=== PATIENT | female | born 1940 | race Caucasian/White ===

== ENCOUNTER → 2017-07-04 | Outpatient (CLI) | payer MEDICARE, OTHER ==
[~2017-07-04] MED LIST: ADVAIR DISKU AER 250; ALBU90OI INH; ALBU90OI6 INH; ASCO500; ASPI81CH PO; ASPI81EC; Advair Hfa 230-12 GM; CEFP200 PO; CELE200 PO; COLACE 100 MG; ERGO400 PO; FLUT1DIS5 INH; GABA300; GABA300 PO; HYDACE5; HYDACE5 PO; HYDR1TAB94 PO; Hair, Skin & N1 EACH PO; Hydrocodone-Ap1 EA23; LORA.5 PO; MELO7.5 PO; METH1TAB8 PO; MIRALAX17 GM; Mobic15 MG; Norco 7.5-3251 EACH PO; OMEP20ER; OMEP20ER PO; OMEP40CA12 PO; Omeprazole20 M1; PROM25 PO; Prilosec Otc20 MG; SERT100; SERT100 PO; TIZANIDINE HCL4 MG PO; TRIAMT/HCTZ TAB 75-; TRIAMTERENE-HCTZ PO; TRIHYD253B PO; TRIHYD5075; TRIHYD5075 PO; TRIM100; VITAMIN D; Vitamin B Comple1 EA PO
[2017-07-04 11:48] LABS: Bilirubin, Urine Neg (Neg); Blood, Urine 2+ (Neg); Glucose Qualitative, Urine Neg (Neg); Ketones, Urine Neg (Neg); Leukocyte Esterase, Urine 3+ (Neg); Nitrite, Urine Pos (Neg); Protein, Urine 1+ (Neg); Specific Gravity, Urine 1.005 (1.003-1.022); Urobilinogen, Urine NORM (Normal)
[2017-07-04 11:58] LABS: Appearance, Urine Clear (Clear); Color, Urine Yellow (P-Yellow)
[2017-07-04 11:59] LABS: White Blood Cells, Urine TNTC /hpf (0-5)
[2017-07-04 12:00] LABS: Bacteria Mod /hpf; Squamous Epithelial Cells Few /hpf (Few)
== END | disposition home or self-care (01) ==
LOC: OLS 10:12
PROVIDERS: Physician Assistant
DX: N39.0 Urinary tract infection, site not specified (principal)
CPT/HCPCS: 81001; 87077; 87086; 87186

== ENCOUNTER → 2017-09-13 | Outpatient (CLI) | payer MEDICARE, OTHER ==
[2017-09-15 13:10] LABS: Stool Occult Bld Immuno 1 Positive (NEGATIVE)
== END | disposition home or self-care (01) ==
LOC: LAB 20:00 → LAB SHORT 20:00 → LAB FUT 09-11 15:15
PROVIDERS: Internal Medicine
DX: D53.8 Other specified nutritional anemias (principal)
CPT/HCPCS: 82274

== ENCOUNTER → 2017-09-14 | Outpatient (CLI) | payer MEDICARE, OTHER ==
[2017-09-17 14:43] LABS: Stool Occult Bld Immuno 1 Positive (NEGATIVE)
== END ==
LOC: LAB 20:00 → LAB SHORT 20:00
PROVIDERS: Internal Medicine
DX: D53.8 Other specified nutritional anemias (principal)
CPT/HCPCS: 82274

== ENCOUNTER → 2018-02-26 | Outpatient (CLI) | payer MEDICARE, OTHER ==
[2018-02-27 14:32] LABS: Stool Occult Bld Immuno 1 Negative (NEGATIVE); Stool Occult Bld Immuno 2 Negative (NEGATIVE)
== END ==
LOC: LAB FUT 02-19 16:35 → EDSTATUS 02-19 16:35 → LAB SHORT 23:00 → LAB 23:00
PROVIDERS: Internal Medicine Gastroenterology
DX: Z01.812 Encounter for preprocedural laboratory examination (principal); Z01.818 Encounter for other preprocedural examination; D64.9 Anemia, unspecified
CPT/HCPCS: 82274

== ENCOUNTER → 2018-11-04 | Outpatient (CLI) | payer MEDICARE, OTHER ==
[2018-11-04 11:24] LABS: Source, Urine Clean Catch
[2018-11-04 12:26] LABS: Bilirubin, Urine Neg (Neg); Blood, Urine 1+ (Neg); Glucose Qualitative, Urine Neg (Neg); Ketones, Urine Neg (Neg); Leukocyte Esterase, Urine 3+ (Neg); Nitrite, Urine Pos (Neg); Protein, Urine Neg (Neg); Specific Gravity, Urine 1.005 (1.003-1.022); Urobilinogen, Urine NORM (Normal)
[2018-11-04 12:37] LABS: Appearance, Urine Hazy (Clear); Color, Urine Yellow (P-Yellow)
[2018-11-04 12:43] LABS: Bacteria Many /hpf; Red Blood Cells, Urine 0-2 /hpf (0-2); Renal Epithelial Rare /hpf (0-Rare); Squamous Epithelial Cells Not Seen /hpf (Few); White Blood Cells, Urine TNTC /hpf (0-5)
== END | disposition home or self-care (01) ==
LOC: LAB SHORT 11:13 → LAB 11:13
PROVIDERS: Urology
DX: R30.0 Dysuria (principal)
CPT/HCPCS: 81001

== ENCOUNTER 2019-01-21 13:17 | Emergency (ER) | payer MEDICARE, OTHER ==
[~2019-01-21] VITALS: Ht 167.6 cm; Wt 77.1 kg
[2019-01-21] MEDS ORDERED: Triamterene W/1 EACH PO (13:57)
== END 2019-01-21 15:28 | disposition home or self-care (01) ==
LOC: ER 13:17
DX: M54.5 Low back pain (principal); J44.9 Chronic obstructive pulmonary disease, unspecified; G89.29 Other chronic pain; Z88.6 Allergy status to analgesic agent; Z88.5 Allergy status to narcotic agent; Z88.8 Allergy status to other drugs, medicaments and biological substances; Z79.899 Other long term (current) drug therapy; Z79.82 Long term (current) use of aspirin; Z87.891 Personal history of nicotine dependence
CPT/HCPCS: 72100; 99283-25

== ENCOUNTER 2019-01-28 18:44 | Emergency (ER) | payer MEDICARE, OTHER ==
[~2019-01-28] VITALS: Ht 172.7 cm; Wt 79.4 kg
[~2019-01-28 18:44] MED LIST changes: +Triamterene W/1 EACH PO
[2019-01-28 20:48] LABS: BASOPHILS ABSOLUTE AUTO 0.04 K/mm3 (0.00-0.23); BASOPHILS PERCENT AUTO 1 % (0-2); EOSINOPHILS PERCENT AUTO 2 % (0-6); Hematocrit 36.5 % (33.0-51.0); Hemoglobin 11.9 g/dL (11.5-16.0); IMMATURE GRAN ABSOLUTE AUTO 0.02 K/mm3 (0.00-0.10); IMMATURE GRAN PERCENT AUTO 0 % (0-1); LYMPHOCYTES ABSOLUTE AUTO 0.56 K/mm3 (0.84-5.20); LYMPHOCYTES PERCENT AUTO 8 % (21-46); MONOCYTES ABSOLUTE AUTO 0.13 K/mm3 (0.16-1.47); MONOCYTES PERCENT AUTO 2 % (4-13); Mean Corpuscular HGB 30.7 pg (26.0-34.0); Mean Corpuscular HGB Conc 32.6 g/dL (31.5-36.5); Mean Corpuscular Volume 94 fL (80-100); Mean Platelet Volume 10.6 fL (9.1-12.4); NEUTROPHILS ABSOLUTE AUTO 5.93 K/mm3 (1.96-9.15); NEUTROPHILS PERCENT AUTO 87 % (41-73); Platelet Count 186 K/mm3 (150-400); RDW Coefficient Variation 14.1 % (11.7-14.2); RDW Standard Deviation 48.8 fL (35.1-46.3); Red Blood Cell Count 3.88 M/mm3 (3.80-5.20); White Blood Cell Count 6.78 K/mm3 (4.00-11.30)
[2019-01-28 21:02] LABS: Alanine Aminotransfer (ALT/SGP 22 U/L (12-78); Albumin, Blood 3.8 g/dL (3.4-5.0); Alk Phos 119 U/L (50-136); Anion Gap 9 mmol/L (6-16); Aspartate Aminotrans (AST/SGOT 15 U/L (12-37); Bilirubin, Total 0.7 mg/dL (0.1-1.0); Blood Urea Nitrogen 20 mg/dL (8-24); Bun/Creatinine Ratio 27.7 (12.0-20.0); CO2, Blood 26 mmol/L (21-32); Calcium, Blood 8.8 mg/dL (8.5-10.1); Chloride, Blood 105 mmol/L (98-108); Creatinine, Blood 0.72 mg/dL (0.40-1.00); Glomerular Filtration Rate >60 (60-); Glucose, Blood 146 mg/dL (70-99); Potassium, Blood 3.6 mmol/L (3.5-5.5); Sodium, Blood 140 mmol/L (136-145); Total Protein, Blood 7.8 g/dL (6.4-8.2); Troponin I <0.015 ng/mL (0.000-0.040)
[2019-01-28 21:12] LABS: Source, Urine Clean Catch
[2019-01-28 21:19] LABS: Bilirubin, Urine Neg (Neg); Blood, Urine 2+ (Neg); Glucose Qualitative, Urine Neg (Neg); Ketones, Urine Neg (Neg); Leukocyte Esterase, Urine 3+ (Neg); Nitrite, Urine Pos (Neg); Protein, Urine 3+ (Neg); Urobilinogen, Urine NORM (Normal)
[2019-01-28 21:30] LABS: Appearance, Urine Hazy (Clear); Bacteria Many /hpf; Color, Urine Yellow (P-Yellow); Red Blood Cells, Urine 0-2 /hpf (0-2); Squamous Epithelial Cells Few /hpf (Few); White Blood Cells, Urine TNTC /hpf (0-5)
[2019-01-28] MEDS ORDERED: CEFD300 PO (22:22)
== END 2019-01-28 23:48 | disposition home or self-care (01) ==
LOC: ER 18:44
PROVIDERS: Emergency Medicine
DX: N39.0 Urinary tract infection, site not specified (principal); Z87.891 Personal history of nicotine dependence; Z88.5 Allergy status to narcotic agent; Z88.8 Allergy status to other drugs, medicaments and biological substances; Z79.891 Long term (current) use of opiate analgesic; Z79.82 Long term (current) use of aspirin; Z79.899 Other long term (current) drug therapy
CPT/HCPCS: 36415; 71046; 80053; 81001; 84484; 85025; 87077; 87086; 87186; 93005; 93010; 96361; 96365; 99284-25; J0696; J7030

== ENCOUNTER → 2019-02-06 | Outpatient (CLI) | payer MEDICARE, OTHER ==
[~2019-02-06] MED LIST changes: +BISA10S PR; +CEFD300 PO; +Colace100 MG PO; +DELTASONE20 MG PO; +DOCU100 PO; +HYDHCL25 PO; +Mobic15 MG PO; +PROBIOTIC1 EAC4; +SENN187 PO; +TIZA4 PO
[2019-02-06 11:31] LABS: Source, Urine Clean Catch
[2019-02-06 12:32] LABS: Bilirubin, Urine Neg (Neg); Blood, Urine Neg (Neg); Glucose Qualitative, Urine Neg (Neg); Ketones, Urine Neg (Neg); Leukocyte Esterase, Urine 1+ (Neg); Nitrite, Urine Neg (Neg); Protein, Urine Neg (Neg); Urobilinogen, Urine NORM (Normal)
[2019-02-06 13:05] LABS: Appearance, Urine Clear (Clear); Color, Urine Yellow (P-Yellow)
[2019-02-06 13:06] LABS: Bacteria Few /hpf; Red Blood Cells, Urine 0-2 /hpf (0-2); Squamous Epithelial Cells Mod /hpf (Few)
== END | disposition home or self-care (01) ==
LOC: LAB SHORT 11:28 → LAB 11:28 → LAB FUT 02-06 15:00
PROVIDERS: Internal Medicine
DX: R30.0 Dysuria (principal)
CPT/HCPCS: 81001; 87086

== ENCOUNTER 2019-02-13 04:00 | Inpatient (IN) | payer MEDICARE, OTHER ==
[~2019-02-13] VITALS: Ht 167.6 cm; Wt 77.1 kg
[~2019-02-13 04:00] MED LIST changes: -BISA10S PR; -Colace100 MG PO; -DELTASONE20 MG PO; -DOCU100 PO; -HYDHCL25 PO; -Mobic15 MG PO; -PROBIOTIC1 EAC4; -SENN187 PO; -TIZA4 PO
[2019-02-13 04:37] LABS: BASOPHILS PERCENT AUTO 1 % (0-2); EOSINOPHILS ABSOLUTE AUTO 0.19 K/mm3 (0.00-0.68); EOSINOPHILS PERCENT AUTO 2 % (0-6); Hematocrit 37.8 % (33.0-51.0); Hemoglobin 12.6 g/dL (11.5-16.0); IMMATURE GRAN ABSOLUTE AUTO 0.04 K/mm3 (0.00-0.10); IMMATURE GRAN PERCENT AUTO 0 % (0-1); LYMPHOCYTES ABSOLUTE AUTO 1.77 K/mm3 (0.84-5.20); LYMPHOCYTES PERCENT AUTO 16 % (21-46); MONOCYTES ABSOLUTE AUTO 0.49 K/mm3 (0.16-1.47); MONOCYTES PERCENT AUTO 4 % (4-13); Mean Corpuscular HGB Conc 33.3 g/dL (31.5-36.5); Mean Corpuscular Volume 93 fL (80-100); Mean Platelet Volume 9.2 fL (9.1-12.4); NEUTROPHILS ABSOLUTE AUTO 8.74 K/mm3 (1.96-9.15); NEUTROPHILS PERCENT AUTO 77 % (41-73); Platelet Count 394 K/mm3 (150-400); RDW Coefficient Variation 13.8 % (11.7-14.2); RDW Standard Deviation 46.8 fL (35.1-46.3); Red Blood Cell Count 4.06 M/mm3 (3.80-5.20); White Blood Cell Count 11.33 K/mm3 (4.00-11.30)
[2019-02-13] MEDS ORDERED: Mobic15 MG PO (04:45)
[2019-02-13] MEDS ORDERED: TIZA4 PO (04:46)
[2019-02-13] MEDS ORDERED: PROBIOTIC1 EAC4 (04:47)
[2019-02-13] MEDS ORDERED: Colace100 MG PO (04:47)
[2019-02-13] MEDS ORDERED: HYDHCL25 PO (04:49)
[2019-02-13 04:54] LABS: Alanine Aminotransfer (ALT/SGP 21 U/L (12-78); Albumin, Blood 4.1 g/dL (3.4-5.0); Alk Phos 121 U/L (50-136); Anion Gap 10 mmol/L (6-16); Aspartate Aminotrans (AST/SGOT 11 U/L (12-37); Bilirubin, Total 0.4 mg/dL (0.1-1.0); Blood Urea Nitrogen 22 mg/dL (8-24); Bun/Creatinine Ratio 29.9 (12.0-20.0); CO2, Blood 25 mmol/L (21-32); Calcium, Blood 9.7 mg/dL (8.5-10.1); Chloride, Blood 106 mmol/L (98-108); Creatinine, Blood 0.74 mg/dL (0.40-1.00); Globulin, Blood 4.2 g/dL (2.2-4.0); Glomerular Filtration Rate >60 (60-); Glucose, Blood 165 mg/dL (70-99); Potassium, Blood 3.7 mmol/L (3.5-5.5); Sodium, Blood 141 mmol/L (136-145); Total Protein, Blood 8.3 g/dL (6.4-8.2)
--- NOTE | 2019-02-13 11:10 | NUR ---
MD NOTIFIED MD NOTIFIED OF UNSUCCESFUL NG ATTEMPT AFTER MULTIPLE ATTEMPTS BY THIS NURSE, COSMO NOE AND COSMO RAMOS. PT NAUSEATED WITHOUT EMESIS. WILL AWAIT SURGICAL CONSULT AND CONTINUE TO MONITOR.
--- NOTE | 2019-02-13 17:37 | NUR ---
ADMIT TO SURGICAL FLOOR REPORT RECEIVED FROM ED, RN AT APPROX. 0710. PT ARRIVED AT 0730 VIA GURNEY WITH N/V AND DROWSINESS.
--- NOTE | 2019-02-13 17:40 | NUR ---
SHIFT SUMMARY PT IS A & O AND ABLE TO ASSIST WITH REPOSITIONING/AMBULATION. NAUSEATED WITH DRY HEAVING AND MIN. EMESIS T/O SHIFT. ALSO REPORTED ABD PAIN INTERMITTENTLY T/O SHIFT THAT WAS DECREASED WITH ANTIEMETIC IV MED AND FREQUENT REPOSITIONING/ DANGLING. SHE BECAME DROWSY BUT RESPONISIVE TO VERBAL STIMULATION AFTER IV PAIN MEDICATION. PT AMBULATED WITH 1 ASSIST TO BATHROOM AND CHAIR WITH FWW. DR. ANDERSON ATTEMPTED TWICE TO INSERT NG AT APPROX. 1400. 94% SPO2 ON 1L O2 WITH RR OF 16. REPORTS LAST BM WAS YESTERDAY AND IS VOIDING. NO ACUTE SAFETY CONCERNS AT THIS TIME.
--- NOTE | 2019-02-13 19:08 | NUR ---
PT CONTINUES TO HAVE UNRELIEVED NAUSEA AND PAIN.SPOKE WITH DR. ANDERSON AT 1900 CONCERNING THIS. NO NEW ORDERS, WILL MAKE NOC RN AWARE AND CTM
[2019-02-13 22:50] LABS: BASOPHILS ABSOLUTE AUTO 0.07 K/mm3 (0.00-0.23); BASOPHILS PERCENT AUTO 1 % (0-2); EOSINOPHILS ABSOLUTE AUTO 0.04 K/mm3 (0.00-0.68); EOSINOPHILS PERCENT AUTO 1 % (0-6); Hematocrit 34.7 % (33.0-51.0); Hemoglobin 11.1 g/dL (11.5-16.0); IMMATURE GRAN ABSOLUTE AUTO 0.04 K/mm3 (0.00-0.10); IMMATURE GRAN PERCENT AUTO 1 % (0-1); LYMPHOCYTES ABSOLUTE AUTO 0.96 K/mm3 (0.84-5.20); LYMPHOCYTES PERCENT AUTO 11 % (21-46); MONOCYTES ABSOLUTE AUTO 0.44 K/mm3 (0.16-1.47); MONOCYTES PERCENT AUTO 5 % (4-13); Mean Platelet Volume 9.3 fL (9.1-12.4); NEUTROPHILS ABSOLUTE AUTO 6.84 K/mm3 (1.96-9.15); NEUTROPHILS PERCENT AUTO 82 % (41-73); Platelet Count 302 K/mm3 (150-400); RDW Standard Deviation 49.7 fL (35.1-46.3); Red Blood Cell Count 3.58 M/mm3 (3.80-5.20); White Blood Cell Count 8.39 K/mm3 (4.00-11.30)
[2019-02-13 23:12] LABS: Mean Corpuscular Volume 97 fL (80-100)
--- NOTE | 2019-02-14 06:44 | NUR ---
SHIFT SUMMARY HAS IMPROVED SINCE START OF SHIFT. PAIN NOW MANAGED. NO CURRENT C/O N/V. AMBULATES TO BATHROOM WITH STANDBY ASSIST AND FWW. NO FLATUS OR BM NOTED THIS SHIFT. NO FURTHER CHANGES AT THIS TIME. SAFETY MEASURES IN PLACE. WILL GIVE HAND OFF TO ONCOMNG SHIFT USING SBAR.
[2019-02-14 08:50] LABS: BASOPHILS ABSOLUTE AUTO 0.03 K/mm3 (0.00-0.23); BASOPHILS PERCENT AUTO 1 % (0-2); EOSINOPHILS PERCENT AUTO 0 % (0-6); Hematocrit 35.3 % (33.0-51.0); Hemoglobin 11.3 g/dL (11.5-16.0); IMMATURE GRAN ABSOLUTE AUTO 0.04 K/mm3 (0.00-0.10); IMMATURE GRAN PERCENT AUTO 1 % (0-1); LYMPHOCYTES ABSOLUTE AUTO 0.53 K/mm3 (0.84-5.20); LYMPHOCYTES PERCENT AUTO 9 % (21-46); MONOCYTES ABSOLUTE AUTO 0.05 K/mm3 (0.16-1.47); MONOCYTES PERCENT AUTO 1 % (4-13); Mean Corpuscular HGB 30.1 pg (26.0-34.0); Mean Platelet Volume 9.5 fL (9.1-12.4); NEUTROPHILS ABSOLUTE AUTO 5.31 K/mm3 (1.96-9.15); NEUTROPHILS PERCENT AUTO 89 % (41-73); Platelet Count 312 K/mm3 (150-400); RDW Coefficient Variation 14.2 % (11.7-14.2); RDW Standard Deviation 48.8 fL (35.1-46.3); Red Blood Cell Count 3.75 M/mm3 (3.80-5.20); White Blood Cell Count 5.96 K/mm3 (4.00-11.30)
[2019-02-14 08:51] LABS: Mean Corpuscular Volume 94 fL (80-100)
--- NOTE | 2019-02-14 09:19 | NUR ---
DOCTOR AT BEDSIDE DR. ANDERSON IN TO SEE PATIENT AT APPROX 0830. HOSPITALIST ALSO INTO SEE PATIENT THIS MORNING AT 0920.
[2019-02-14 09:20] LABS: Magnesium, Blood 2.1 mg/dL (1.6-2.4)
[2019-02-14 09:25] LABS: Alanine Aminotransfer (ALT/SGP 22 U/L (12-78); Albumin, Blood 3.4 g/dL (3.4-5.0); Albumin/Globulin Ratio 0.9 (0.8-1.8); Alk Phos 93 U/L (50-136); Anion Gap 6 mmol/L (6-16); Aspartate Aminotrans (AST/SGOT 16 U/L (12-37); Bilirubin, Total 0.4 mg/dL (0.1-1.0); Blood Urea Nitrogen 14 mg/dL (8-24); Bun/Creatinine Ratio 23.7 (12.0-20.0); CO2, Blood 28 mmol/L (21-32); Calcium, Blood 8.5 mg/dL (8.5-10.1); Chloride, Blood 110 mmol/L (98-108); Creatinine, Blood 0.59 mg/dL (0.40-1.00); Globulin, Blood 3.9 g/dL (2.2-4.0); Glomerular Filtration Rate >60 (60-); Glucose, Blood 145 mg/dL (70-99); Potassium, Blood 3.6 mmol/L (3.5-5.5); Sodium, Blood 144 mmol/L (136-145); Total Protein, Blood 7.3 g/dL (6.4-8.2)
--- NOTE | 2019-02-14 17:12 | NUR ---
SHIFT SUMMARY PT A&O WITH VSS. SHE REPORTS PASSING FLATUS T/O SHIFT. PAIN WELL CONTROLLED WITH ONLY ONE DOSE OF PAIN MEDICATION DURING SHIFT. IN CHAIR FREQUENTLY AND AMBULATED WITHOUT DIFFICULTY TO BATHROOM W/FFW AND 1 ASSIST. SPO2 @ 93% ON 1L NS. TOLERATING ICE CHIPS. USES CALL LIGHT APPROPRIATELY.
[2019-02-15 04:07] LABS: BASOPHILS ABSOLUTE AUTO 0.01 K/mm3 (0.00-0.23); BASOPHILS PERCENT AUTO 0 % (0-2); EOSINOPHILS PERCENT AUTO 0 % (0-6); Hematocrit 34.4 % (33.0-51.0); Hemoglobin 10.9 g/dL (11.5-16.0); IMMATURE GRAN ABSOLUTE AUTO 0.04 K/mm3 (0.00-0.10); IMMATURE GRAN PERCENT AUTO 1 % (0-1); LYMPHOCYTES ABSOLUTE AUTO 0.61 K/mm3 (0.84-5.20); LYMPHOCYTES PERCENT AUTO 8 % (21-46); MONOCYTES ABSOLUTE AUTO 0.15 K/mm3 (0.16-1.47); MONOCYTES PERCENT AUTO 2 % (4-13); Mean Corpuscular HGB 30.9 pg (26.0-34.0); Mean Corpuscular HGB Conc 31.7 g/dL (31.5-36.5); Mean Platelet Volume 9.5 fL (9.1-12.4); NEUTROPHILS ABSOLUTE AUTO 6.76 K/mm3 (1.96-9.15); NEUTROPHILS PERCENT AUTO 89 % (41-73); Platelet Count 285 K/mm3 (150-400); RDW Coefficient Variation 14.4 % (11.7-14.2); Red Blood Cell Count 3.53 M/mm3 (3.80-5.20); White Blood Cell Count 7.57 K/mm3 (4.00-11.30)
[2019-02-15 04:08] LABS: Mean Corpuscular Volume 98 fL (80-100)
[2019-02-15 04:31] LABS: Alanine Aminotransfer (ALT/SGP 16 U/L (12-78); Albumin, Blood 3.5 g/dL (3.4-5.0); Alk Phos 83 U/L (50-136); Anion Gap 7 mmol/L (6-16); Aspartate Aminotrans (AST/SGOT 16 U/L (12-37); Bilirubin, Total 0.5 mg/dL (0.1-1.0); Blood Urea Nitrogen 17 mg/dL (8-24); Bun/Creatinine Ratio 30.7 (12.0-20.0); CO2, Blood 26 mmol/L (21-32); Calcium, Blood 8.3 mg/dL (8.5-10.1); Chloride, Blood 109 mmol/L (98-108); Creatinine, Blood 0.55 mg/dL (0.40-1.00); Globulin, Blood 3.6 g/dL (2.2-4.0); Glomerular Filtration Rate >60 (60-); Glucose, Blood 132 mg/dL (70-99); Magnesium, Blood 2.1 mg/dL (1.6-2.4); Phosphorus, Blood 2.9 mg/dL (2.5-4.9); Potassium, Blood 3.2 mmol/L (3.5-5.5); Sodium, Blood 142 mmol/L (136-145); Total Protein, Blood 7.1 g/dL (6.4-8.2)
--- NOTE | 2019-02-15 06:33 | NUR ---
PT HAS BEEN STABLE THIS SHIFT. PT DENIES PAIN AND NAUSEA. CONT TO PAS FLATUS, NO BM. PT VOIDING WELL. ALESSIA ICE CHIPS. CONT IV FLUIDS. NEW IV THIS SHIFT. REMAINS ON 2L O2. CONT BIOX ON. BED ALARM ON FOR SAFETY. PT HAS USED CALL LIGHT APPROPRAITELY THIS SHIFT.
[2019-02-15 13:46] LABS: Source, Urine Clean Catch
[2019-02-15 13:57] LABS: Bilirubin, Urine Neg (Neg); Blood, Urine 2+ (Neg); Glucose Qualitative, Urine Neg (Neg); Ketones, Urine Neg (Neg); Leukocyte Esterase, Urine 3+ (Neg); Nitrite, Urine Neg (Neg); Protein, Urine 1+ (Neg); Urobilinogen, Urine NORM (Normal)
--- NOTE | 2019-02-15 13:57 | NUR ---
DR ANDERSON RECENTLY HERE, UPDATED ON PT'S STATUS. PT REPORTS HAVING BM BUT FEELING BLOATED AFTER EATING.
[2019-02-15 14:06] LABS: Appearance, Urine Hazy (Clear); Color, Urine Yellow (P-Yellow)
[2019-02-15 14:07] LABS: White Blood Cells, Urine 25-50 /hpf (0-5)
[2019-02-15 14:09] LABS: Bacteria Many /hpf; Mucus Mod (0-Heavy); Red Blood Cells, Urine 0-2 /hpf (0-2); Squamous Epithelial Cells Many /hpf (Few)
--- NOTE | 2019-02-15 17:35 | NUR ---
SHIFT SUMMARY PT EATING AND DRINKING. PT REPORTS FEELING BLOATED AFTER EATING BUT THAT SHE IS VOIDING, PASSING GAS, AND HAVING SMALL BM'S. PT BEEN UP TO CHAIR, AMBULATED IN HALLWAY WITH ASSIST. PT S.L. PT USING Ubi APPR. PT ENJOYS HAVING ICE CHIPS. MARLENA NAIK TO SEE PT TODAY.
--- NOTE | 2019-02-16 05:52 | NUR ---
PT HAS BEEN STABLE THIS SHIFT. HYPERTENSIVE AT TIMES. AFEBRILE. URINE MICRO PENDING. PT HAS CLOUDY URINE AND REPORTS DYSURIA. VOIDING WELL. MIN ASSIST OOB TO BATHROOM. PT ALSO REPORTS SORE THROAT. WHEEZING T/O SHIFT, BREATHING TREATMENT X1. SATS STABLE ON RA. CONT BIOX IN PLACE. PT CONT TO PASS FLATUS OCCASIONALLY. NO BM THIS SHIFT. BLOATING AND PAIN AFTER FULL LIQUIDS. PT TOOK ONLY ICE THIS SHIFT. NO N/V. IV REMAINS S.L. BED ALARM ON FOR AFETY, PT CALLED APPROPRIATELY NEEDED.
--- NOTE | 2019-02-16 16:17 | NUR ---
SHIFT SUMMARY PT INDEPENDANT IN ROOM, WAKLED DOWN HALLWAY TODAY INDEPENDANTLY. PT HAS REPORTED NO PAIN TODAY. TOLERATING WATER AND HAS EATEN VERY SMALL AMOUNT OF FOOD TODAY, BUT REPORTS DISCOMFORT AFTER EATING. DR HAS BEEN IN TO SEE PT TODAY.
--- NOTE | 2019-02-17 05:28 | NUR ---
PT HAS BEEN STABLE THIS SHIFT. REMAINS ON RA. CONT BIOX ON. PT SLEPT MOST OF THE NIGHT. NO COMPLAINTS OF PAIN OR NAUSEA. INDEP TO BATHROOM. VOIDING WELL. + UTI. DRINKING FLUIDS WELL BUT NOT TOLERATING REGULAR DIET IT CAUSES BLOATING AND DISCOMFORT. PT HAVING FLATUS. NO BM THIS SHIFT. BOWEL CARE GIVEN SCHEDULED. PT USES CALL LIGHT APPROPRIATELY NEEDED.
[2019-02-17] MEDS ORDERED: BISA10S PR (10:53)
[2019-02-17] MEDS ORDERED: DOCU100 PO (10:54)
[2019-02-17] MEDS ORDERED: SENN187 PO (10:55)
[2019-02-17] MEDS ORDERED: DELTASONE20 MG PO (10:55)
[2019-02-17] MEDS ORDERED: CEFD300 PO (10:56)
--- NOTE | 2019-02-17 12:20 | NUR ---
DISCHARGED REVIEWED DC PAPERWORK W/PT; VERBALIZED UNDERSTANDING. DC'D IV, CATHETER INTACT. PT LEFT UNIT IN WC W/POSSESSIONS AND DC PAPERWORK IN HAND ACCOMPANIED BY FAMILY MEMBER.
== END 2019-02-17 12:10 | disposition home or self-care (01) | DRG 389 ==
LOC: ER 04:00 → SURS 06:09
PROVIDERS: Emergency Medicine; Family Medicine; Nurse Practitioner Acute Care; ADMIT Internal Medicine
DX: K56.609 Unspecified intestinal obstruction, unspecified as to partial versus complete obstruction (principal); N39.0 Urinary tract infection, site not specified; E86.0 Dehydration; J44.9 Chronic obstructive pulmonary disease, unspecified; K43.9 Ventral hernia without obstruction or gangrene; K21.9 Gastro-esophageal reflux disease without esophagitis; E78.5 Hyperlipidemia, unspecified; Z87.891 Personal history of nicotine dependence
CPT/HCPCS: 36415; 74176; 80053; 81001; 83605; 83690; 83735; 84100; 85025; 87077; 87086; 87186; 94640; 94760; 94762; 96374; 96375; 96376; 99285-25; J0456; J0696; J1170; J1650; J2405; J2550; J2930; J3010; J7030; J7050; J7512

== ENCOUNTER → 2019-03-09 | Outpatient (CLI) | payer MEDICARE, OTHER ==
[~2019-03-09] MED LIST changes: +BISA10S PR; +Colace100 MG PO; +DELTASONE20 MG PO; +DOCU100 PO; +HYDHCL25 PO; +Mobic15 MG PO; +PROBIOTIC1 EAC4; +SENN187 PO; +TIZA4 PO
== END | disposition home or self-care (01) ==
LOC: LAB SHORT 11:29 → LAB 11:29 → LAB FUT 02-21 12:55
DX: K30 Functional dyspepsia (principal)
CPT/HCPCS: 87338

== ENCOUNTER → 2019-04-14 | Outpatient (CLI) | payer MEDICARE, OTHER ==
[2019-04-14 13:09] LABS: Source, Urine Clean Catch
[2019-04-14 13:58] LABS: Bilirubin, Urine Neg (Neg); Blood, Urine Neg (Neg); Glucose Qualitative, Urine Neg (Neg); Ketones, Urine Neg (Neg); Leukocyte Esterase, Urine Neg (Neg); Nitrite, Urine Neg (Neg); Protein, Urine Neg (Neg); Specific Gravity, Urine 1.005 (1.003-1.022); Urobilinogen, Urine NORM (Normal)
[2019-04-14 14:37] LABS: Appearance, Urine Clear (Clear); Color, Urine Yellow (P-Yellow)
== END | disposition home or self-care (01) ==
LOC: LAB 13:09 → LAB SHORT 13:09
PROVIDERS: Urology
DX: N39.0 Urinary tract infection, site not specified (principal)
CPT/HCPCS: 81003; 87086

== ENCOUNTER → 2019-07-28 | Outpatient (CLI) | payer MEDICARE, OTHER ==
[2019-07-28 16:00] LABS: Source, Urine Clean Catch
[2019-07-28 16:38] LABS: Bilirubin, Urine Neg (Neg); Blood, Urine Neg (Neg); Glucose Qualitative, Urine Neg (Neg); Ketones, Urine Neg (Neg); Leukocyte Esterase, Urine Neg (Neg); Nitrite, Urine Neg (Neg); Protein, Urine Neg (Neg); Urobilinogen, Urine NORM (Normal)
[2019-07-28 16:40] LABS: Appearance, Urine Clear (Clear); Color, Urine Yellow (P-Yellow)
== END | disposition home or self-care (01) ==
LOC: LAB SHORT 15:45 → OLS 15:45 → LAB FUT 07-27 15:20 → EDSTATUS 07-27 15:20
PROVIDERS: Internal Medicine
DX: N39.0 Urinary tract infection, site not specified (principal)
CPT/HCPCS: 81003

== ENCOUNTER → 2019-10-03 | Outpatient (CLI) | payer MEDICARE, OTHER ==
[2019-10-03 15:27] LABS: Bilirubin, Urine Neg (Neg); Blood, Urine Neg (Neg); Glucose Qualitative, Urine Neg (Neg); Ketones, Urine Neg (Neg); Leukocyte Esterase, Urine 2+ (Neg); Nitrite, Urine Neg (Neg); Protein, Urine Neg (Neg); Specific Gravity, Urine 1.005 (1.003-1.022); Urobilinogen, Urine NORM (Normal)
[2019-10-03 15:33] LABS: Appearance, Urine Clear (Clear); Color, Urine Yellow (P-Yellow)
[2019-10-03 15:35] LABS: Bacteria Many /hpf; Red Blood Cells, Urine 0-2 /hpf (0-2); Squamous Epithelial Cells Few /hpf (Few)
== END | disposition home or self-care (01) ==
LOC: LAB SHORT 13:56 → LAB 13:56
PROVIDERS: Physician Assistant
DX: N39.0 Urinary tract infection, site not specified (principal)
CPT/HCPCS: 81001; 87077; 87086; 87186

== ENCOUNTER → 2020-04-20 | Outpatient (CLI) | payer MEDICARE, OTHER ==
[2020-04-20 14:26] LABS: Source, Urine Clean Catch
[2020-04-20 18:40] LABS: Appearance, Urine Hazy (Clear); Bilirubin, Urine Neg (Neg); Blood, Urine 1+ (Neg); Color, Urine Yellow (P-Yellow); Glucose Qualitative, Urine Neg (Neg); Ketones, Urine Neg (Neg); Leukocyte Esterase, Urine 2+ (Neg); Nitrite, Urine Pos (Neg); Protein, Urine Neg (Neg); Specific Gravity, Urine 1.015 (1.003-1.022); Urobilinogen, Urine NORM (Normal)
[2020-04-20 18:58] LABS: Mucus Mod (0-Heavy)
[2020-04-20 18:59] LABS: Amorphous Mod (0-Heavy); Bacteria Mod /hpf; Renal Epithelial Rare /hpf (0-Rare); Squamous Epithelial Cells Few /hpf (Few); Transitional Epithelial Cells Few /hpf (0-Rare); White Blood Cells, Urine 25-50 /hpf (0-5)
== END | disposition home or self-care (01) ==
LOC: LAB 14:25 → LAB SHORT 14:25
PROVIDERS: Physician Assistant
DX: N39.0 Urinary tract infection, site not specified (principal)
CPT/HCPCS: 81001; 87077; 87086; 87186

== ENCOUNTER → 2020-06-08 | Outpatient (CLI) | payer MEDICARE, OTHER ==
[~2020-06-08] MED LIST changes: +Acetaminophen325 M1 PO; +CARAFATE1 GM PO; +DULCOLAX400 MG/5 M PO; +DULO60 PO; +Dyazide 37.5/251 EA PO; -ERGO400 PO; +FAMO20 PO; +FLUTICASONE-SA1 EA11 INH; +Fleet Enema132 ML PR; +Monodox100 MG PO; +Norco 5-325 Ta1 EACH PO; +PROBIOTIC1 EA13 PO; -PROBIOTIC1 EAC4; -Triamterene W/1 EACH PO; +Vancomycin1 GM/2501 IV; +Vitamin D2000 UNIT PO
== END | disposition home or self-care (01) ==
LOC: PLD 12:25 → LAB SHORT 12:25
DX: F42.4 Excoriation (skin-picking) disorder (principal)
CPT/HCPCS: 88305; 88312

== ENCOUNTER → 2020-06-11 | Outpatient (CLI) | payer MEDICARE ==
[2020-06-11 15:18] LABS: Source, Urine Clean Catch
[2020-06-11 17:44] LABS: Appearance, Urine Cloudy (Clear); Bilirubin, Urine Neg (Neg); Blood, Urine Neg (Neg); Color, Urine Yellow (P-Yellow); Glucose Qualitative, Urine Neg (Neg); Ketones, Urine Neg (Neg); Leukocyte Esterase, Urine 1+ (Neg); Nitrite, Urine Pos (Neg); Protein, Urine Neg (Neg); Specific Gravity, Urine 1.015 (1.003-1.022); Urobilinogen, Urine NORM (Normal)
[2020-06-11 18:07] LABS: Amorphous Light (0-Heavy); Bacteria Many /hpf; Red Blood Cells, Urine 0-2 /hpf (0-2); Squamous Epithelial Cells Mod /hpf (Few); White Blood Cells, Urine 25-50 /hpf (0-5)
== END ==
LOC: LAB 15:16 → LAB SHORT 15:16
PROVIDERS: Internal Medicine
DX: N39.0 Urinary tract infection, site not specified (principal)
CPT/HCPCS: 81001; 87077; 87086; 87186

== ENCOUNTER 2020-08-30 06:00 | Inpatient (IN) | payer MEDICARE ==
[~2020-08-30] VITALS: Ht 167.6 cm; Wt 77.5 kg
[~2020-08-30 06:00] MED LIST changes: -Acetaminophen325 M1 PO; -DOCU100 PO; -DULCOLAX400 MG/5 M PO; -DULO60 PO; -Dyazide 37.5/251 EA PO; -FAMO20 PO; -FLUTICASONE-SA1 EA11 INH; -Fleet Enema132 ML PR; -Monodox100 MG PO; -Norco 5-325 Ta1 EACH PO; -PROBIOTIC1 EA13 PO; -Vancomycin1 GM/2501 IV; -Vitamin D2000 UNIT PO
--- NOTE | 2020-08-30 07:53 | NUR ---
PT INTO [facility] VIA W/C, ABLE TO TRANSFER TO [facility] WITH [facility] ASSISTANCE. History, Chart, Medications and Allergies reviewed before start of procedure.Patient confirms NPO status and agrees with scheduled surgery. Patient reports completing Chlorhexadine shower X2 prior to admission to hospital.Surgical site prepped with 2% Chlorhexidine cloth wipe. CLARIFIED MEDICATIONS AND ALLERGIES WITH DR. COELHO PRIOR TO ADMINISTRATION. DUONEB GIVEN PER ANETHESIA. TEETH, GLASSES, HEARING AIDS TO PACU. RING TAPED AND RELEASE FORM SIGNED, PT REPORTS WILL NOT COME OFF.
--- NOTE | 2020-08-30 11:35 | NUR ---
pt arrived to unit on own bed, drowsy but answers questions appropriately, c/o back/r leg pin, asks to sit up, pt educated on anterior hip precautions, elevated bed as much as possible within precautions; arrives from PACU with sheet and towel roll between legs to keep pt from rolling to side in position. pt provided with room/call light education; post op vs commenced and stable. pt provided with PO fluids/snack, medicated per aug. aquacel R hip c/d/i, no shadowing, peripheral pulses strong, toes on operative limb cool, wiggles on command, cap refil <3 sec. PAS/TEDS in place.
--- NOTE | 2020-08-30 12:19 | NUR ---
C/O L THIGH/LOW BACK PAIN, APPLIED HEATING PAD TO L THIGH. POST OP VSS AND CONTINUING, PT RESTING WITH EYES CLOSED, AWAKENS EASILY TO VERBAL STIMULI. THIS RN NOTIFIED PT'S OF ROOM AND STATUS VIA TELEPHONE
--- NOTE | 2020-08-30 15:12 | NUR ---
PT IN ROOM WITH PATIENT AND SPOUSE
[2020-08-31 04:34] LABS: BASOPHILS ABSOLUTE AUTO 0.02 K/mm3 (0.00-0.23); BASOPHILS PERCENT AUTO 0 % (0-2); EOSINOPHILS ABSOLUTE AUTO 0.01 K/mm3 (0.00-0.68); EOSINOPHILS PERCENT AUTO 0 % (0-6); Hematocrit 29.1 % (33.0-51.0); Hemoglobin 9.2 g/dL (11.5-16.0); IMMATURE GRAN ABSOLUTE AUTO 0.03 K/mm3 (0.00-0.10); IMMATURE GRAN PERCENT AUTO 0 % (0-1); LYMPHOCYTES ABSOLUTE AUTO 1.03 K/mm3 (0.84-5.20); LYMPHOCYTES PERCENT AUTO 11 % (21-46); MONOCYTES ABSOLUTE AUTO 0.69 K/mm3 (0.16-1.47); MONOCYTES PERCENT AUTO 8 % (4-13); Mean Corpuscular HGB 31.4 pg (26.0-34.0); Mean Corpuscular HGB Conc 31.6 g/dL (31.5-36.5); Mean Corpuscular Volume 99 fL (80-100); Mean Platelet Volume 9.3 fL (9.1-12.4); NEUTROPHILS ABSOLUTE AUTO 7.45 K/mm3 (1.96-9.15); NEUTROPHILS PERCENT AUTO 81 % (41-73); Platelet Count 248 K/mm3 (150-400); RDW Coefficient Variation 13.4 % (11.7-14.2); RDW Standard Deviation 48.9 fL (35.1-46.3); Red Blood Cell Count 2.93 M/mm3 (3.80-5.20); White Blood Cell Count 9.23 K/mm3 (4.00-11.30)
[2020-08-31 04:59] LABS: Anion Gap 5 mmol/L (6-16); Blood Urea Nitrogen 17 mg/dL (8-24); Bun/Creatinine Ratio 25.1 (12.0-20.0); CO2, Blood 29 mmol/L (21-32); Calcium, Blood 8.4 mg/dL (8.5-10.1); Chloride, Blood 104 mmol/L (98-108); Creatinine, Blood 0.68 mg/dL (0.40-1.00); Glomerular Filtration Rate >60 (60-); Glucose, Blood 129 mg/dL (70-99); Magnesium, Blood 2.1 mg/dL (1.6-2.4); Potassium, Blood 3.8 mmol/L (3.5-5.5); Sodium, Blood 138 mmol/L (136-145)
--- NOTE | 2020-08-31 05:22 | NUR ---
SHIFT SUMMARY LYING IN SEMI FOWLERS WITH EYES CLOSED. HAS RESTED OFF AND ON THROUGHOUT SHIFT. NO SIGNIFICANT CHANGES NOTED. RIGHT HIP AQUACEL AND POLAR DAYANA REMAIN C/D/I AND IN PLACE. AMBULATION WITH FWW AND GAIT BELT TOLERATED WELL. SL PIV AFTER PT ABLE TO TOLERATE FLUIDS WITH EASE. DENIES N/V, OR FURTHER NEEDS AT THIS TIME. SAFETY MEASURES IN PLACE. WILL CONTINUE TO MONITOR AND GIVE HAND OFF TO ONCOMING SHIFT USING SBAR.
--- NOTE | 2020-08-31 18:21 | NUR ---
SHIFT SUMMARY INITIALLY PT WAS DROWSY, STRUGGLED FOLLOWING DIRECTIONS, & IMPULSIVE. HAS PROGRESSED SLOWLY T/O SHIFT & WAS EVEN ABLE TO AMBULATE IN HALLWAY W/ THERAPY. UP TO CHAIR FOR ALL MEALS. PAIN WELL MANAGED W/ OCC "CRAMPING" PAIN.
--- NOTE | 2020-09-01 05:45 | NUR ---
SHIFT ASSESSMENT LYING IN SEMI FOWLERS WITH EYES CLOSED. AAO X4, LYNNE, FAC, HAS BEEN COOPERATIVE AND PLEASANT WITH CARE. ONLY CALLED OUT ONCE WHEN SHE DECIDED THAT SHE NEEDED HELP REPOSITIONING. SHE STATED THAT SHE THOUGHT SHE WAS AT HOME AND WAS CALLING FOR HER . NO SIGNIFICANT CHANGES NOTED. PAIN MANAGED WITH PRN AND SCHEDULED MEDS. SL PIV IS PATENT. SCD'S, RAYSA, POLAR PAC, AND AQUACELL IN PLACE. DENIES FURTHER NEEDS AT THIS TIME. SAFETY MEASURES IN PLACE. WILL CONTINUE TO MONITOR AND GIVE HAND OFF TO ONCOMING SHIFT USING SBAR.
--- NOTE | 2020-09-01 06:55 | NUR ---
RECVD REPORT FROM PREVIOUS RN COLEMAN, PT SITTING UP IN CHAIR, A/O X 4, PLEASANT/COOPERATIVE, DENIES PAIN, CALL LIGHT WITHIN REACH
--- NOTE | 2020-09-01 17:38 | NUR ---
summary: vss, no acute changes, pt confused when wakening, reorients well, has remained a/o x 4 t/o shift. pt up to chair for meals, worked with PT, has been visited by her . R hip aquacel dressing remains c/d/i, cap refill operative limb <3 seconds. lungs clear, diminished in bases. pt has required reminders to uncross legs, has demonstrated impulsive movements.
--- NOTE | 2020-09-02 03:34 | NUR ---
SHIFT SUMMARY NO ACUTE CHANGES OVERNIGHT. PT SLEPT GOOD T/O THE SHIFT REPORTS PAIN 5-02/11. PAIN MANAGED WITH SCHEDULED TORADOL, NORCO Q4, FLEXERIL AND GABAPENTIN. IT SEEMED TO HELPED HER, PT COMFORTABLE IN BED SLEEPING. INTERMITTENTLY CROSS LEGS AND IS NOT COMPLIANT WITH HIP PRECAUTIONS. PROVIDE EDUCATION. PT DENIES NUMBNESS AND TINGLING SENSATION. PT TOLERATING PO INTAKE, DENIES N/V. URINARY CATH INTACT/GRAVITY. VOIDING ADEQUATELY. PASSING FLATUS. CALL LIGHT WITHIN REACH.
--- NOTE | 2020-09-02 19:42 | NUR ---
SHIFT SUMMARY PT A&OX4, VSS, POD3 R MARTIN, AQUACEL CHANGED TODAY, AMBULATES WITH FWW & GB TO BRP, UP TO CHAIR T/O SHIFT. PAIN MANAGED WITH 5 MG NORCO AND TORADOL. ALESSIA PO, DENIES N&V. VOIDING WELL, BMS+ TODAY. PLAN FOR SNF DC TOMORROW. REPORT PROVIDED TO LISA WILBURN.
--- NOTE | 2020-09-03 04:02 | NUR ---
SHIFT SUMMARY POD4 R MARTIN, A/O X4, VSS, TOLERATING PO, VOIDING VIA CHRONIC SUPRAPUBIC CATHETER, BM THIS SHIFT, AMBULATING W/ ASSISTANCE/FWW/GB, PAIN CONTROLLED PER EMAR, NO ACUTE EVENTS THIS SHIFT, PLAN TO DC IN THE MORNING. CALL LIGHT IN REACH, WILL CONTINUE TO MONITOR AND REPORT TO ONCOMING DAY RN.
[2020-09-03 13:28] LABS: Influenza A, PCR NEGATIVE (NEGATIVE); Influenza B, PCR NEGATIVE (NEGATIVE); Resp Syncytial Virus, PCR NEGATIVE (NEGATIVE); SARS-Cov-2 (COVID-19) PCR, MMC NEGATIVE (NEGATIVE)
--- NOTE | 2020-09-03 15:02 | NUR ---
DISCHARGE SUMMARY PT A&OX4, VSS, LEFT WITH TRANSPORT TO [facility], WITH ALL PERSONAL POSSESSIONS INCLUDING PURSE, POLAR DAYANA, AND CLOTHING; PACKET WITH SCRIPT WAS PROVIDED TO CAMPAIGN MANAGEMENT SPECIALIST. REPORT CALLED TO IGNACIA AT .
== END 2020-09-03 14:45 | DRG 470 ==
LOC: SURS 06:00 → ORSCMMR 06:00 → ORD 07:30 → ORSCMMR 07:30 → SURS 11:29 → ORSCMMR 09-01 20:27 → SURS 09-01 20:29
PROVIDERS: ADMIT Orthopaedic Surgery
PROC: 0QP604Z Removal of Internal Fixation Device from Right Upper Femur, Open Approach (ICD-10-PCS; 2020-08-30)
PROC: 3E02340 Introduction of Influenza Vaccine into Muscle, Percutaneous Approach (ICD-10-PCS; 2020-08-30)
PROC: 0SRR03Z Replacement of Right Hip Joint, Femoral Surface with Ceramic Synthetic Substitute, Open Approach (ICD-10-PCS; principal; 2020-08-30 07:30)
DX: M16.11 Unilateral primary osteoarthritis, right hip (principal); Z79.899 Other long term (current) drug therapy; K21.9 Gastro-esophageal reflux disease without esophagitis; F32.9 Major depressive disorder, single episode, unspecified; F41.9 Anxiety disorder, unspecified; E78.5 Hyperlipidemia, unspecified; I10 Essential (primary) hypertension; J44.9 Chronic obstructive pulmonary disease, unspecified; Z88.8 Allergy status to other drugs, medicaments and biological substances; Z90.49 Acquired absence of other specified parts of digestive tract; Z98.890 Other specified postprocedural states; Z90.710 Acquired absence of both cervix and uterus; Z96.642 Presence of left artificial hip joint; Z98.49 Cataract extraction status, unspecified eye; Z23 Encounter for immunization
CPT/HCPCS: 0241U; 36415; 72170; 80048; 83735; 85025; 94640; 94760; 97110; 97110-CO; 97110-CQ; 97116; 97116-CQ; 97162; 97166; 97530; 97530-CO; 97530-CQ; 97535; 97535-CO; A9270; A9270-GY; C1776; J0171; J0690; J0735; J1100; J1170; J1885; J2370; J2405; J2704; J2795; J3010; J7120

== ENCOUNTER 2020-09-11 17:31 | Inpatient (IN) | payer MEDICARE ==
[~2020-09-11] VITALS: Ht 167.6 cm; Wt 76.7 kg
[2020-09-11 18:16] LABS: BASOPHILS ABSOLUTE AUTO 0.05 K/mm3 (0.00-0.23); BASOPHILS PERCENT AUTO 1 % (0-2); EOSINOPHILS PERCENT AUTO 2 % (0-6); Hematocrit 29.1 % (33.0-51.0); Hemoglobin 9.4 g/dL (11.5-16.0); IMMATURE GRAN ABSOLUTE AUTO 0.05 K/mm3 (0.00-0.10); IMMATURE GRAN PERCENT AUTO 1 % (0-1); LYMPHOCYTES PERCENT AUTO 15 % (21-46); MONOCYTES ABSOLUTE AUTO 0.59 K/mm3 (0.16-1.47); MONOCYTES PERCENT AUTO 6 % (4-13); Mean Corpuscular HGB 31.5 pg (26.0-34.0); Mean Corpuscular HGB Conc 32.3 g/dL (31.5-36.5); Mean Corpuscular Volume 98 fL (80-100); Mean Platelet Volume 9.2 fL (9.1-12.4); NEUTROPHILS ABSOLUTE AUTO 7.89 K/mm3 (1.96-9.15); NEUTROPHILS PERCENT AUTO 77 % (41-73); Platelet Count 407 K/mm3 (150-400); RDW Standard Deviation 49.4 fL (35.1-46.3); Red Blood Cell Count 2.98 M/mm3 (3.80-5.20); White Blood Cell Count 10.28 K/mm3 (4.00-11.30)
[2020-09-11 18:33] LABS: Alanine Aminotransfer (ALT/SGP 21 U/L (12-78); Albumin, Blood 3.3 g/dL (3.4-5.0); Albumin/Globulin Ratio 0.8 (0.8-1.8); Alk Phos 106 U/L (50-136); Anion Gap 6 mmol/L (6-16); Aspartate Aminotrans (AST/SGOT 18 U/L (12-37); Bilirubin, Total 0.4 mg/dL (0.1-1.0); Blood Urea Nitrogen 12 mg/dL (8-24); CO2, Blood 28 mmol/L (21-32); Calcium, Blood 8.8 mg/dL (8.5-10.1); Chloride, Blood 100 mmol/L (98-108); Creatinine, Blood 0.67 mg/dL (0.40-1.00); Glomerular Filtration Rate >60 (60-); Glucose, Blood 118 mg/dL (70-99); Potassium, Blood 3.4 mmol/L (3.5-5.5); Sodium, Blood 134 mmol/L (136-145); Total Protein, Blood 7.3 g/dL (6.4-8.2)
[2020-09-11] MEDS ORDERED: FLUTICASONE-SA1 EA11 INH (19:33)
[2020-09-11] MEDS ORDERED: DULO60 PO (19:34)
[2020-09-11] MEDS ORDERED: Monodox100 MG PO (19:35)
[2020-09-11] MEDS ORDERED: Dyazide 37.5/251 EA PO (19:35)
[2020-09-11] MEDS ORDERED: Vitamin D2000 UNIT PO (19:59)
[2020-09-11] MEDS ORDERED: PROBIOTIC1 EA13 PO (19:59)
[2020-09-11] MEDS ORDERED: FAMO20 PO (20:00)
[2020-09-11] MEDS ORDERED: DOCU100 PO (20:01)
[2020-09-11] MEDS ORDERED: Norco 5-325 Ta1 EACH PO (20:02)
[2020-09-11] MEDS ORDERED: GABA300 PO (20:03)
[2020-09-11] MEDS ORDERED: ASPI81CH PO (20:03)
[2020-09-11] MEDS ORDERED: SENN187 PO (20:05)
[2020-09-11] MEDS ORDERED: Acetaminophen325 M1 PO (20:05)
[2020-09-11 22:30] LABS: Influenza A, PCR NEGATIVE (NEGATIVE); Influenza B, PCR NEGATIVE (NEGATIVE); Resp Syncytial Virus, PCR NEGATIVE (NEGATIVE); SARS-Cov-2 (COVID-19) PCR, MMC NEGATIVE (NEGATIVE)
[2020-09-12 02:56] LABS: Source, Urine Catheter
[2020-09-12 02:58] LABS: Bilirubin, Urine Neg (Neg); Blood, Urine 4+ (Neg); Glucose Qualitative, Urine Neg (Neg); Ketones, Urine Neg (Neg); Leukocyte Esterase, Urine 3+ (Neg); Nitrite, Urine Neg (Neg); Protein, Urine 2+ (Neg); Specific Gravity, Urine 1.015 (1.003-1.022); Urobilinogen, Urine NORM (Normal)
[2020-09-12 03:07] LABS: Appearance, Urine Cloudy (Clear); Color, Urine Yellow (P-Yellow)
[2020-09-12 03:10] LABS: Amorphous Light (0-Heavy); Bacteria Mod /hpf; Squamous Epithelial Cells Many /hpf (Few); White Blood Cells, Urine 25-50 /hpf (0-5)
[2020-09-12 04:06] LABS: BASOPHILS ABSOLUTE AUTO 0.04 K/mm3 (0.00-0.23); BASOPHILS PERCENT AUTO 0 % (0-2); EOSINOPHILS ABSOLUTE AUTO 0.02 K/mm3 (0.00-0.68); EOSINOPHILS PERCENT AUTO 0 % (0-6); Hematocrit 30.8 % (33.0-51.0); Hemoglobin 9.7 g/dL (11.5-16.0); IMMATURE GRAN PERCENT AUTO 1 % (0-1); LYMPHOCYTES ABSOLUTE AUTO 0.66 K/mm3 (0.84-5.20); LYMPHOCYTES PERCENT AUTO 5 % (21-46); MONOCYTES ABSOLUTE AUTO 0.66 K/mm3 (0.16-1.47); MONOCYTES PERCENT AUTO 5 % (4-13); Mean Corpuscular HGB 31.1 pg (26.0-34.0); Mean Corpuscular HGB Conc 31.5 g/dL (31.5-36.5); Mean Corpuscular Volume 99 fL (80-100); Mean Platelet Volume 9.1 fL (9.1-12.4); NEUTROPHILS ABSOLUTE AUTO 12.72 K/mm3 (1.96-9.15); NEUTROPHILS PERCENT AUTO 90 % (41-73); Platelet Count 360 K/mm3 (150-400); RDW Coefficient Variation 14.2 % (11.7-14.2); RDW Standard Deviation 50.9 fL (35.1-46.3); Red Blood Cell Count 3.12 M/mm3 (3.80-5.20)
[2020-09-12] MEDS ORDERED: Fleet Enema132 ML PR (04:17)
[2020-09-12] MEDS ORDERED: BISA10S PR (04:17)
[2020-09-12] MEDS ORDERED: DULCOLAX400 MG/5 M PO (04:18)
[2020-09-12 04:36] LABS: Anion Gap 6 mmol/L (6-16); Blood Urea Nitrogen 12 mg/dL (8-24); Bun/Creatinine Ratio 14.3 (12.0-20.0); CO2, Blood 27 mmol/L (21-32); Chloride, Blood 104 mmol/L (98-108); Creatinine, Blood 0.84 mg/dL (0.40-1.00); Glomerular Filtration Rate >60 (60-); Glucose, Blood 145 mg/dL (70-99); Potassium, Blood 3.5 mmol/L (3.5-5.5); Sodium, Blood 137 mmol/L (136-145)
--- NOTE | 2020-09-12 04:53 | NUR ---
ADMIT & SHIFT SUMMARY PT TO UNIT FROM ED. PROVIDER STATES BEING WORRIED ABOUT NECROTIZIN FASCITIS. PT LETHARGIC UPON ARRIVAL TO UNIT AND ONLY RESPONDING TO PAIN. PRESENTS TO BE IN SEVERE PAIN TO R HIP POST HIP SURGERY ON 08/30. PT OJN 2LNC, LUNGS CLEAR T/O. PT IN SINUS RHYTHM W/ PAC'S. PT PRESENTED WITH CHRONIC SUPRAPUBIC CATHETER, THIS WAS CHANGED OUT BY STAFF, 16FR INSERTED WITH URINE RETURN AND NO COMPLICATIONS, UA SENT FROM NEWLY PLACED CATHETER. FOR MUCH OF SHIFT PT HAS BEEN VERY LETHARGIC BUT STILL AT TIMES SHOWS SIGNS OF SEVERE PAIN. TOWARDS ENF OF SHIFT, PT PRESENTS W/ LESSENING GRIMACING, MOANING, ETC. PT HAS BECAME LESS LETHARGIC WELL BUT STILL DIFFICULT TO HOLD CONVERSATION WITH RN. COVID NEGATIVE IN ER. ADMISSION PACKET COMPLETED EXCEPT HEALTH HX DUE TO INABILITY TO VERIFY INFO W/ PT DUE TO MENTATION. OTHERWISE, PT ASLEEP FOR MOST OF SHIFT. BED ALARM IN PLACE. BED IN LOW POSITION. WILL CONTINUE TO MONITOR UNTIL SHIFT CHANGE.
[2020-09-12 11:35] LABS: BODY FLUID RBC 0.172 M/mm3 (0-0); RBC Count, Synovial Fluid 172000 /mm3 (0-0)
--- NOTE | 2020-09-12 11:58 | NUR ---
Pt back form surgery very painfull with low back sapsms. supportive time with patient assited with positioning. Review of prn meds with nursing. Will follow forsymptom managment and to complete advance directive and polst.
[2020-09-12 12:00] LABS: WBC Count, Synovial Fluid 71300 /mm3 (0-180)
[2020-09-12 12:01] LABS: Appearance, Synovial Fluid Turbid (Clear); Color, Synovial Fluid Red (None-P Yel)
[2020-09-12 12:10] LABS: Lymphs, Synovial Fluid 2 % (0-15); Monocytes/Macrophages, Synovia 2 % (0-65); Neutrophils, Synovial Fluid 96 % (0-24)
--- NOTE | 2020-09-12 12:58 | NUR ---
POST-OP/TRANSFER NOTE OBTAINED REPORT FROM SUNGLASS CLIP ATTACHER AND CODING SUPPORT SPECIALIST. PATIENT HAD I&D OF RIGHT HIP WOUND. PATIENT DROWSY IN ROOM. EXPERIENCING SPASMS OF SEVERE PAIN IN HER LOWER BACK. MEDICATED FOR PAIN PER EMAR WITH DILAUDID AND TORADOL. NAUSEATED AND MEDICATED WITH ZOFRAN. SPASMS CONTINUED, GAVE PO NEURONTIN AND CYMBALTA. ABLE TO TOLERATE SIPS OF CLEARS AND JELLO. IV FLUIDS RUNNING. REPOSITIONED PATIENT AND PLACED ICE TO RIGHT HIP. VSS. PATIENT WAS ABLE TO SPEAK BRIEFLY WITH HER DAUGHTER ON THE PHONE.
--- NOTE | 2020-09-12 17:04 | NUR ---
SHIFT SUMMARY PATIENT UNDERWENT I&D OF RIGHT HIP. PAINFUL ON RETURN FROM PACU. EXPERIENCING SHOOTING PAIN IN BACK AND RIGHT LEG THAT RESEMBLED MUSCLE SPASMS. MEDICATED FOR PAIN WITH DILAUDID, TORADOL, NEURONTIN, AND CYMBALTA. TOLERATING CLEARS AND VOIDING IN SUPRAPUBIC CATHETER. IV FLUIDS RUNNING. DRESSING TO RIGHT HIP C/D/I.
--- NOTE | 2020-09-13 04:07 | NUR ---
SHIFT SUMMARY: WILLIS AROUSES EASILY AND RESPONDS APPROPRIATELY. SHE HAS DEMONSTRATED SOME MILD CONFUSION WHEN AROUSING , BUT REORIENTS HERSELF. BP IMPROVING WITH ADDITIONAL FLUID ADMINISTRATION. SUPRAPUBIC CATHETER PATENT. ABDUCTOR PILLOW IN PLACE, DRESSING TO RIGHT HIP C/D&I. SHE REPORTS "GRABBING" PAIN IN HER RIGHT THIGH WHICH SOUNDS LIKE MUSCLE SPASMS. TOLERATING PO INTAKE WELL ALTHOUGH INTAKE WAS MINIMAL THIS SHIFT. SHE IS ABLE TO MOVE HERSELF IN BED WITH MINIMAL ASSISTANCE. SHE IS LYING IN BED WITH THE CALL LIGHT IN REACH. WILL REPORT TO DAY SHIFT RN.
[2020-09-13 04:53] LABS: Hematocrit 20.7 % (33.0-51.0); Hemoglobin 6.5 g/dL (11.5-16.0); Mean Corpuscular HGB 31.3 pg (26.0-34.0); Mean Corpuscular HGB Conc 31.4 g/dL (31.5-36.5); Mean Corpuscular Volume 100 fL (80-100); Mean Platelet Volume 9.1 fL (9.1-12.4); Platelet Count 248 K/mm3 (150-400); RDW Coefficient Variation 14.3 % (11.7-14.2); RDW Standard Deviation 51.1 fL (35.1-46.3); Red Blood Cell Count 2.08 M/mm3 (3.80-5.20); White Blood Cell Count 13.25 K/mm3 (4.00-11.30)
[2020-09-13 05:09] LABS: Magnesium, Blood 1.8 mg/dL (1.6-2.4)
[2020-09-13 05:10] LABS: Anion Gap 6 mmol/L (6-16); BAND PERCENT MAN 18 % (0-8); BASOPHILS PERCENT MAN 0 % (0-2); Blood Urea Nitrogen 15 mg/dL (8-24); Bun/Creatinine Ratio 22.3 (12.0-20.0); CO2, Blood 26 mmol/L (21-32); Calcium, Blood 7.4 mg/dL (8.5-10.1); Chloride, Blood 106 mmol/L (98-108); Creatinine, Blood 0.67 mg/dL (0.40-1.00); EOSINOPHILS PERCENT MAN 0 % (0-6); Glomerular Filtration Rate >60 (60-); Glucose, Blood 141 mg/dL (70-99); LYMPHOCYTES ABSOLUTE MAN 0.26 K/mm3 (0.84-5.20); LYMPHOCYTES PERCENT MAN 2 % (21-46); MONOCYTES ABSOLUTE MAN 0.79 K/mm3 (0.16-1.47); MONOCYTES PERCENT MAN 6 % (4-13); NEUTROPHILS ABSOLUTE MAN 12.19 K/mm3 (1.96-9.15); Potassium, Blood 3.6 mmol/L (3.5-5.5); SEG NEUTROPHILS PERCENT MAN 74 % (41-73); Sodium, Blood 138 mmol/L (136-145); TOTAL CELLS COUNTED 100
--- NOTE | 2020-09-13 05:52 | NUR ---
[facility] 6.5 THIS MORNING. ON-CALL PHYSICIAN NOTIFIED, ORDER OBTAINED FOR 1 UNIT PACKED RED BLOOD CELLS. DISCUSSED WITH PT WHO STATES SHE IS WILLING TO RECEIVE BLOOD/BLOOD PRODUCTS.
--- NOTE | 2020-09-13 12:12 | NUR ---
PT TO OR VIA HOSPITAL BED. BLOOD TRANSFUSION TO COMPLETED BY DAY SURGERY/OR.
--- NOTE | 2020-09-13 12:32 | NUR ---
EXPIRATORY WHEEZES AUSCULATED TO UPPER POSTERIOR LUNGS BILAT. PATIENT DENIES SOB AND STATES SHE HAS A HX COPD. WILL REPORT TO DR COELHO AND TO THE ANESTHESIOLOGIST.
--- NOTE | 2020-09-13 13:05 | NUR ---
DR COELHO AND DR TRACY, ANESTHESIOLIGST, NOTIFIED OF WHEEZING. PATIENT GIVEN DUO NEB PER DR TRACY ORDER.
--- NOTE | 2020-09-13 14:37 | NUR ---
09/13/20 1437 Stephy Burt PT ON SCHEDULED ANTIBIOTIC AND ENTERED OR WITH TRUONG CATH
--- NOTE | 2020-09-13 17:20 | NUR ---
POST OP ARRIVED VIA HOSPITAL BED INTO ROOM. C/O PAIN BUT SMILES & JOKES WHEN SEES HER DAUGHTER. ALERT & ORIENTED BUT UNABLE TO COPE W/ PAIN. GRABS AT R HIP. R HIP RED W/ WOUND VAC WNL. PPP. VSS.
--- NOTE | 2020-09-13 23:50 | NUR ---
ASSUMED CARE AT THIS TIME. PT SLEEPING BUT DOES WAKE TO TOUCH. STATES PAIN IS MINIMAL. VSS, WOUND VAC TO RIGHT HIP IN PLACE AND DELIVERING THERAPY. BRUISING NOTED TO RIGHT THIGH/GROIN. SP CATH IN PLACE AND DRAINING LIGHT YELLOW URINE. PT WAS REPOSITIONED TO OTHER SIDE AND TOLERATED WELL. SCHEDULE TORADOL GIVEN AT THIS TIME. PT WAS GIVEN SIP OF WATER PER REQUEST NO OTHER NEEDS AT THIS TIME. CALL LIGHT IN REACH.
[2020-09-14 05:11] LABS: Hematocrit 27.9 % (33.0-51.0); Hemoglobin 8.9 g/dL (11.5-16.0); Mean Corpuscular HGB 29.6 pg (26.0-34.0); Mean Corpuscular HGB Conc 31.9 g/dL (31.5-36.5); Mean Corpuscular Volume 93 fL (80-100); Mean Platelet Volume 9.5 fL (9.1-12.4); Platelet Count 263 K/mm3 (150-400); RDW Coefficient Variation 19.4 % (11.7-14.2); Red Blood Cell Count 3.01 M/mm3 (3.80-5.20); White Blood Cell Count 10.51 K/mm3 (4.00-11.30)
[2020-09-14 05:34] LABS: Anion Gap 6 mmol/L (6-16); Blood Urea Nitrogen 14 mg/dL (8-24); Bun/Creatinine Ratio 21.5 (12.0-20.0); CO2, Blood 25 mmol/L (21-32); Calcium, Blood 7.9 mg/dL (8.5-10.1); Chloride, Blood 108 mmol/L (98-108); Creatinine, Blood 0.65 mg/dL (0.40-1.00); Glomerular Filtration Rate >60 (60-); Glucose, Blood 171 mg/dL (70-99); Potassium, Blood 4.4 mmol/L (3.5-5.5); Sodium, Blood 139 mmol/L (136-145); Vancomycin, Trough 9.8 ug/mL (5.0-10.0)
--- NOTE | 2020-09-14 05:34 | NUR ---
PT HAS DONE QUITE WELL SINCE ASSUMING CARE. PAIN IS MINIMAL. WV STILL IN PLACE H/H BETTER THIS AM. PT HAS BEEN TOLERATING PO, IV SL PER ORDERS. TITRATED OXYGEN TO 1L NC. TRUONG DRAINING SUFFICIENT AMTS. CALL LIGHT IN REACH, BED ALARM ON FOR SAFETY.
--- NOTE | 2020-09-14 18:35 | NUR ---
SHIFT SUMMARY PT WAS INITIALLY IN A LOT OF PAIN BUT HAS SINCE BEEN COMFORTABLE. SAT UP IN CHAIR TWICE, AMBULATED IN HALLWAY ONCE. WOUND VAC WNL.
--- NOTE | 2020-09-15 03:43 | NUR ---
SHIFT SUMMARY AOX3, FORGETFUL AT TIMES. VSS. POD2 S/P FOR 2ND I&D WITH WOUND VAC PLACEMENT. PT REPORTS PAIN 5-10/10. MOSTLY WELL CONTROLLED T/O SHIFT WITH TORADOL, DILAUDID AND NORCO. PT DENIES N/T. R HIP W/ WOUND VAC WNL. ABX ADMINISTERED ON IV POWERGLIDE ON JABIER. TOLERATING REG DIET DENIES NAUSEA AND VOMITING. PT HAS A MILD WET COUGH. SHE REPORTS PASSING FLATUS. NO ACUTE CHANGES OVERNIGHT. PT SLEPT GOOD T/O SHIFT. CALL LIGHT WITHIN REACH, REMAIN ON ISO DUET O MRSA. WILL CONTINUE TO MONITOR PATIENT AND PROVIDE REPORT TO ONCOMING AM NURSE.
[2020-09-15 05:39] LABS: Hematocrit 28.1 % (33.0-51.0); Mean Corpuscular HGB 29.9 pg (26.0-34.0); Mean Corpuscular Volume 93 fL (80-100); Mean Platelet Volume 9.4 fL (9.1-12.4); Platelet Count 308 K/mm3 (150-400); RDW Coefficient Variation 18.7 % (11.7-14.2); RDW Standard Deviation 65.1 fL (35.1-46.3); Red Blood Cell Count 3.01 M/mm3 (3.80-5.20); White Blood Cell Count 8.51 K/mm3 (4.00-11.30)
[2020-09-15 05:55] LABS: Anion Gap 4 mmol/L (6-16); Blood Urea Nitrogen 13 mg/dL (8-24); Bun/Creatinine Ratio 16.1 (12.0-20.0); CO2, Blood 27 mmol/L (21-32); Calcium, Blood 7.8 mg/dL (8.5-10.1); Chloride, Blood 110 mmol/L (98-108); Creatinine, Blood 0.81 mg/dL (0.40-1.00); Glomerular Filtration Rate >60 (60-); Glucose, Blood 98 mg/dL (70-99); Potassium, Blood 4.2 mmol/L (3.5-5.5); Sodium, Blood 141 mmol/L (136-145)
--- NOTE | 2020-09-15 08:30 | NUR ---
pt eating breakfast sitting on edge of the bed reports being fuzzy stated unsure why had to tell two of her friends that she would call them back reviewed labs with pt and vs think it poss could be the neurontin will hold this am
--- NOTE | 2020-09-15 10:44 | NUR ---
dr valverde by earlier discussed with him how she was feeling "fuzzy"
--- NOTE | 2020-09-15 12:35 | NUR ---
umannabellea valley by to see pt
--- NOTE | 2020-09-15 14:40 | NUR ---
dr lana nance by to see pt new wound vac cannister placed
--- NOTE | 2020-09-15 16:41 | NUR ---
Pt seen at lunch time. More vibrant and talkative today. She express pain is better and less spasms. She is hopful she wont need a repeat "cleaning" of her hip. Appetite good and she was enjoying her food. Will see who will be managing her chronic pain after she leaved the SNF. She is high risk for readmissions due to her chronic back pain and spasms.
--- NOTE | 2020-09-16 00:50 | NUR ---
MIDNIGHT TORADOL DOSE STAGGERED UNTIL 0100 PRIOR DOSE HAD TO BE GIVEN AT 2000 INSTEAD OF 1800 DUE TO IV ACCESS DIFFICULTIES.
--- NOTE | 2020-09-16 02:44 | NUR ---
Ms Blanco has had quite a rough night tonight. Her confusion and anxiety seemed to get worse into the shift. just after midnight, Caroline began yelling out and crying. She called her and asked him to come pick her up. This took place about 20 minutes after she had received her midnight Toradol dose, She was crying when she explained that she was having nightmares about someone trying to kill her. The chargemaster specialist and myself both sat with the patient and got her to calm down and relax after being given 0.25mcg Fentanyl for moderate to severe R, Hip pain. will continue close monitoring for safety
[2020-09-16 05:19] LABS: Hematocrit 29.2 % (33.0-51.0); Hemoglobin 9.3 g/dL (11.5-16.0); Mean Corpuscular HGB 29.8 pg (26.0-34.0); Mean Corpuscular HGB Conc 31.8 g/dL (31.5-36.5); Mean Corpuscular Volume 94 fL (80-100); Mean Platelet Volume 9.6 fL (9.1-12.4); Platelet Count 344 K/mm3 (150-400); RDW Coefficient Variation 17.9 % (11.7-14.2); RDW Standard Deviation 61.8 fL (35.1-46.3); Red Blood Cell Count 3.12 M/mm3 (3.80-5.20); White Blood Cell Count 6.26 K/mm3 (4.00-11.30)
--- NOTE | 2020-09-16 05:26 | NUR ---
MOLDER MACHINE SUMMARY Caroline continued to call out frequently all night. Pain medication changed from dilaudid to fentanyl which did appear to help a little bit. She is very aware that she is having surgery this morning and each time she tries to get out of bed, she asks if it is time. Scant drainage from wound vac. Seal remains intact. Patient reaches for it quite often when staff present in room but is easily redirected. Medicated Q6 per order with toradol and once with fentanyl. Perhaps she could use something to sleep to help her relax at night or HS.
[2020-09-16 05:41] LABS: Anion Gap 3 mmol/L (6-16); Blood Urea Nitrogen 12 mg/dL (8-24); CO2, Blood 29 mmol/L (21-32); Chloride, Blood 111 mmol/L (98-108); Creatinine, Blood 0.67 mg/dL (0.40-1.00); Glomerular Filtration Rate >60 (60-); Glucose, Blood 105 mg/dL (70-99); Sodium, Blood 143 mmol/L (136-145)
[2020-09-16 05:56] LABS: Vancomycin, Trough 20.1 ug/mL (5.0-10.0)
--- NOTE | 2020-09-16 10:22 | NUR ---
Pt resting in bed and reporting 10/10 pain in her hip. Pt reports plan for another debrisment today. Pt appears anxious as well. Continued therapeutic listening. Dr Barney into to see Pt. Discussed case with Dr Barney. Placed order for neurotin 100mg PO q 8 hours and Bacloefen 10mg PO BID per V/O from Dr Barney. Spoke with Bedside COSMO Dutton and discussed case. Palliative Care will remain available.
--- NOTE | 2020-09-16 13:25 | NUR ---
PT TO OR AT APROX 1325 ON OWN BED.
--- NOTE | 2020-09-16 13:51 | NUR ---
PT. WAS BROUGHT TO D/S FO HER PROCEDURE. History, Chart, Medications and Allergies reviewed before start of procedure.Lungs clear T/O to Auscultation. Patient confirms NPO status and agrees with scheduled surgery. Pre-Op teaching done. Pt verbalizes understanding.
--- NOTE | 2020-09-16 14:56 | NUR ---
09/16/20 1456 KULDIPMANI FLORES PT RECEIVED SCHEDULED ANTIOBIOTICS PRIOR TO PROCEDURE PER DR ORDERS.
--- NOTE | 2020-09-16 18:28 | NUR ---
SHIFT SUMMARY PT POST OP FOR A R HIP DEBRIDEMENT AND WASH OUT. THE WOUND VAC WAS REMOVED AND THE PATIENT NOW HAS A DEO DRAIN AT THE SITE. THE PATIENT HAS BEEN VERY EMOTIONAL AND AXIOUS THIS SHIFT. SHE IS OFTEN TEARFUL AND HARD TO REDIRECT. SHE IS ALSO FORGETFUL REGARDING HER HIP PRECAUTIONS. MEDICATED HER FOR ANXIETY X1 AND THAT SOMEWHAT HELPED. BED ALARM IN PLACE DUE TO THE PATIENT BEING IMPULSIVE. VSS.
--- NOTE | 2020-09-17 03:00 | NUR ---
SHIFT SUMMARY: POD 1 RIGHT HIP I&D PATIENT IS ALERT AND ORIENTED X2-3. SHE IS VERY ANXIOUS AND EMOTIONAL WHEN AWAKE. PATIENT IS CALMED DOWN WHEN TALKING WITH EYE CONTACT AND HOLDING HER HAND. SHE HAS AMI SLEEP MAJORITY OF THE SHIFT BUT IS EASILY AROUSABLE. VS ARE WNL. DEO DRAIN HAS RED OUTPUT IN BULB. BULB IS COMPRESSED AND INTACT. TRUONG IS DRAINING INTO TRUONG BAG WITH NO KINKS IN TUBING. SHE IS FORGETFUL ON HER HIP PRECAUTIONS. BED ALARM IS ON. CALL LIGHT WITHIN REACH. THE PLAN IS TO WORK WITH PT/OT AND BE DISCHARGED BACK TO [facility].
[2020-09-17 09:24] LABS: Creatinine, Blood 0.55 mg/dL (0.40-1.00); Vancomycin, Trough 13.2 ug/mL (5.0-10.0)
--- NOTE | 2020-09-17 11:16 | NUR ---
0815 PT WITH FREQUENT ATTEMPTS TO CLIMB OUT OF BED, BED ALARM IN PLACE. PT ASSISTED TO CHAIR AND ATTEMPTS TO GET SELF OUT OF CHAIR. PT RETCHING, ZOFRAN GIVEN
--- NOTE | 2020-09-17 11:17 | NUR ---
1030 PTS HERE TO VISIT, PT SMILING AND COOPERATIVE WITH VISITOR HERE
--- NOTE | 2020-09-17 12:42 | NUR ---
Brief visit this afternoon. RN's preparing for personal care. Pt reports current regimen is managing pain. Bedside RN Sadia reports Pt has been experiencing confusion since before her procedure yesterday. Pt's mentation did improve when spouse arrived to visit then confusion came back after he left. No other concerns reported at this time. Palliative Care will remain available.
--- NOTE | 2020-09-17 15:54 | NUR ---
1530 DR MARIBELL COELHO HERE AND NEW DRESSING APPLIED TO RIGHT HIP WITH GAUZE AND FOAM TAPE. PT CHEERFUL, SITTING IN CHAIR AND DENIES PAIN
--- NOTE | 2020-09-17 15:58 | NUR ---
1040 FOLLOWING PATIENTS HUSBANDS ARRIVAL PATIENT CHEERFUL, SMILING AND ORIENTED. INTRODUCED AND TELLS ME HOW MUCH BETTER SHE FEELS AFTER HER ARRIVAL
--- NOTE | 2020-09-17 17:44 | NUR ---
summary PT WITH PERIODS OF ANXIETY, CONFUSION AND TEARFULNESS. PT SMILING, TALKATIVE WHILE PRESENT. RIGHT HIP DRESSING DRY AND INTACT. DEO PATENT WITH SEROSANGUINOUS OUTPUT. ONE EPISODE OF NAUSEA CONTROLLED WITH ZOFRAN
--- NOTE | 2020-09-18 02:39 | NUR ---
SHIFT SUMMARY: POD 3 I&D RIGHT HIP PATIENT SEEMS MORE ALERT THAN LAST NIGHT. SHE IS ALERT AND ORIENTED 2-3 WHILE AWAKE. VS ARE WNL AND ON RA. PAIN IS CONTROLLED WITH IV TORADOL AND PO NORCO. RIGHT HIP DRESSING IS C/D/I. DEO IS DRAINING RED OUTPUT INTO BULB. BULB IS COMPRESSED. PATIENTS CHRONIC SUPERPUBIC CATH IS INTACT AND IS DRAINING YELLOW URINE BY GRAVITY INTO TRUONG BAG. SHE HAS HAD A BM AND IS PASSING GAS. PATIENT IS TOLERATING PO INTAKE. PATIENT CAN BECOME CONFUSED AT TIMES SO BED ALARM IS ON. HER POWERGLIDE IS INTACT AND IS DRAWING UP BLOOD AND FLUSHES WNL. CALL LIGHT WITHIN REACH THOUGH PATIENT USUALLY SCREAMS OUT WHEN NEEDING SOMETHING. THE PLAN IS TO CONTINUE PT AND EVENTUALLY GET DISCHARGED BACK TO [facility].
[2020-09-18 05:44] LABS: Hematocrit 28.9 % (33.0-51.0); Mean Corpuscular HGB 28.8 pg (26.0-34.0); Mean Corpuscular HGB Conc 31.1 g/dL (31.5-36.5); Mean Corpuscular Volume 93 fL (80-100); Mean Platelet Volume 9.6 fL (9.1-12.4); Platelet Count 367 K/mm3 (150-400); RDW Coefficient Variation 17.4 % (11.7-14.2); RDW Standard Deviation 58.4 fL (35.1-46.3); Red Blood Cell Count 3.12 M/mm3 (3.80-5.20); White Blood Cell Count 4.84 K/mm3 (4.00-11.30)
[2020-09-18 05:50] LABS: Anion Gap 3 mmol/L (6-16); Blood Urea Nitrogen 8 mg/dL (8-24); Bun/Creatinine Ratio 12.8 (12.0-20.0); CO2, Blood 33 mmol/L (21-32); Calcium, Blood 7.9 mg/dL (8.5-10.1); Chloride, Blood 106 mmol/L (98-108); Creatinine, Blood 0.63 mg/dL (0.40-1.00); Glomerular Filtration Rate >60 (60-); Glucose, Blood 98 mg/dL (70-99); Potassium, Blood 3.5 mmol/L (3.5-5.5); Sodium, Blood 142 mmol/L (136-145)
--- NOTE | 2020-09-18 17:01 | NUR ---
SUMMARY PT WAS NOT ABLE TO REPORT DAY/DATE BUT OTHERWISE ORIENTED T/O SHIFT. TEARFUL AT TIMES; NOT WANTING TO GO TO SNF. THIS MORNING REPORTED TO DR BEDOYA CP. WHEN ASKED BY RN, PT STATED "...DOESN'T FEEL LIKE HEART ATTACK" AND THAT IT FELT LIKE INDIGESTION. EKG AND TROPONIN OBTAINED AND WNL. PT REPORTS DISCOMFORT HAS RESOLVED. MEDICATED ONCE DURING SHIFT W/TYLENOL FOR ABEBE PAIN. PT AMBULATED IN ROOM W/RN AND AND IN ADRIAN W/DEBT RECOVERY OFFICER. DEO DRAINING SS FLUID. PT SAT UP IN CHAIR FOR PORTION OF SHIFT. NOW BACK TO BED; BED ALARM ON. CALL LIGHT IN REACH.
--- NOTE | 2020-09-19 05:20 | NUR ---
SHIFT SUMMARY LYING IN LOW FOWLERS WITH EYES CLOSED. PT HAS SLEPT OFF AND ON THIS SHIFT DUE TO INTERMITTENT PAIN ISSUES IN RIGHT LEG. MEDICATED WITH PRN MEDS AVAILABLE. GUAZE AND FOAM DRESSING TO RIGHT HIP IS INTACT. DEO DRAIN TO LEFT HIP IS COLLECTING S/S FLUID, BULBS EMPTIED AND COMPRESSED. NO SIGNIFICANT CHANGED NOTED THIS SHIFT. DENIES PAIN, DISCOMFORT, OR FURTHER NEEDS AT THIS TIME. SAFETY MEASURES IN PLACE. WILL CONTINUE TO MONITOR FOR CHANGES/NEEDS AND ADDRESS THEM THEY ARISE, AND WILL GIVE HAND OFF TO ONCOMING SHIFT USING SBAR DURING BEDSIDE REPORT.
--- NOTE | 2020-09-19 18:13 | NUR ---
SUMMARY NO ACUTE CHANGES T/O SHIFT. PT SLEPT SOUNDLY UNTIL APPROXIMATELY 1000. HAS BEEN AWAKE AND ORIENTED X3 SINCE. MEDICATED PER ORDERS FOR PAIN. USED ICE AND KPAD FOR COMFORT FOR PAIN/SPASMS TO RLE. DEO PUTTING OUT SS DRAINAGE. TRUONG DRAINING DARK YELLOW URINE. PT SAT UP IN CHAIR FOR AWHILE AND AMBULATED IN ROOM. HAD BM. CALL LIGHT IN REACH. SON AT BEDSIDE.
[2020-09-20 05:42] LABS: Hematocrit 31.6 % (33.0-51.0); Hemoglobin 9.9 g/dL (11.5-16.0); Mean Corpuscular HGB 28.9 pg (26.0-34.0); Mean Corpuscular HGB Conc 31.3 g/dL (31.5-36.5); Mean Corpuscular Volume 92 fL (80-100); Mean Platelet Volume 9.4 fL (9.1-12.4); Platelet Count 413 K/mm3 (150-400); RDW Standard Deviation 58.4 fL (35.1-46.3); Red Blood Cell Count 3.43 M/mm3 (3.80-5.20); White Blood Cell Count 8.37 K/mm3 (4.00-11.30)
[2020-09-20 06:00] LABS: Anion Gap 7 mmol/L (6-16); Blood Urea Nitrogen 5 mg/dL (8-24); Bun/Creatinine Ratio 8.4 (12.0-20.0); CO2, Blood 29 mmol/L (21-32); Calcium, Blood 8.3 mg/dL (8.5-10.1); Chloride, Blood 104 mmol/L (98-108); Glomerular Filtration Rate >60 (60-); Glucose, Blood 119 mg/dL (70-99); Potassium, Blood 3.3 mmol/L (3.5-5.5); Sodium, Blood 140 mmol/L (136-145)
--- NOTE | 2020-09-20 06:29 | NUR ---
SHIFT SUMMARY LYING BACK IN CHAIR AT BEDSIDE WITH EYES CLOSED. PT HAS SLEPT OFF AND ON THIS SHIFT DUE TO INTERMITTENT PAIN ISSUES IN RIGHT LEG. GUAZE AND FOAM DRESSING TO RIGHT HIP IS INTACT. DEO DRAIN TO LEFT HIP IS COLLECTING S/S FLUID, BULB EMPTIED AND COMPRESSED. NO SIGNIFICANT CHANGED NOTED THIS SHIFT. DENIES PAIN, DISCOMFORT, OR FURTHER NEEDS AT THIS TIME. SAFETY MEASURES IN PLACE. WILL CONTINUE TO MONITOR FOR CHANGES/NEEDS AND ADDRESS THEM THEY ARISE, AND WILL GIVE HAND OFF TO ONCOMING SHIFT USING SBAR DURING BEDSIDE REPORT.
[2020-09-20 09:31] LABS: Vancomycin, Trough 10.5 ug/mL (5.0-10.0)
[2020-09-20 14:24] LABS: Influenza A, PCR NEGATIVE (NEGATIVE); Influenza B, PCR NEGATIVE (NEGATIVE); Resp Syncytial Virus, PCR NEGATIVE (NEGATIVE); SARS-Cov-2 (COVID-19) PCR, MMC NEGATIVE (NEGATIVE)
--- NOTE | 2020-09-20 15:22 | NUR ---
REPORT CALLED TO YAN GANN
--- NOTE | 2020-09-20 18:14 | NUR ---
DISCHARGE SUMMARY PT A&OX4, VSS, TRUONG IN PLACE, POWERGLIDE IN PLACE, AMBULATING W/FWW & GB TO FOR TRANSPORT TO SNF, WITH ALL PERSONAL POSSESSIONS. REPORT CALLED TO YAN MASSEY [facility].
== END 2020-09-20 17:44 | disposition home or self-care (01) | DRG 464 ==
LOC: ER 17:31 → PCU 22:31 → SURS 22:31 → ER 22:31 → PCU 22:33 → SURS 09-12 08:53 → PCU 09-12 09:03 → SURS 09-17 15:30
PROVIDERS: Emergency Medicine; Internal Medicine; Nurse Practitioner Acute Care; Orthopaedic Surgery; Pharmacist; ADMIT Internal Medicine
PROC: 0JBL0ZZ Excision of Right Upper Leg Subcutaneous Tissue and Fascia, Open Approach (ICD-10-PCS; principal; 2020-09-12 09:00)
PROC: 0JBL0ZZ Excision of Right Upper Leg Subcutaneous Tissue and Fascia, Open Approach (ICD-10-PCS; 2020-09-13)
PROC: 0SH908Z Insertion of Spacer into Right Hip Joint, Open Approach (ICD-10-PCS; 2020-09-13)
PROC: 0SRR03A Replacement of Right Hip Joint, Femoral Surface with Ceramic Synthetic Substitute, Uncemented, Open Approach (ICD-10-PCS; 2020-09-13)
PROC: 30233N1 Transfusion of Nonautologous Red Blood Cells into Peripheral Vein, Percutaneous Approach (ICD-10-PCS; 2020-09-13)
PROC: 0SPR0JZ Removal of Synthetic Substitute from Right Hip Joint, Femoral Surface, Open Approach (ICD-10-PCS; 2020-09-16)
DX: T84.51XA Infection and inflammatory reaction due to internal right hip prosthesis, initial encounter (principal); T81.42XA Infection following a procedure, deep incisional surgical site, initial encounter; I96 Gangrene, not elsewhere classified; M86.9 Osteomyelitis, unspecified; T81.44XA Sepsis following a procedure, initial encounter; A49.02 Methicillin resistant Staphylococcus aureus infection, unspecified site; Z66 Do not resuscitate; F03.90 Unspecified dementia, unspecified severity, without behavioral disturbance, psychotic disturbance, mood disturbance, and anxiety; D63.8 Anemia in other chronic diseases classified elsewhere; E78.5 Hyperlipidemia, unspecified; F32.9 Major depressive disorder, single episode, unspecified; F41.9 Anxiety disorder, unspecified; J44.9 Chronic obstructive pulmonary disease, unspecified; K21.9 Gastro-esophageal reflux disease without esophagitis; M54.9 Dorsalgia, unspecified; I10 Essential (primary) hypertension; G89.29 Other chronic pain; M16.11 Unilateral primary osteoarthritis, right hip; Z87.891 Personal history of nicotine dependence; Z88.5 Allergy status to narcotic agent; Z88.8 Allergy status to other drugs, medicaments and biological substances; Z91.048 Other nonmedicinal substance allergy status; Z79.899 Other long term (current) drug therapy; Z90.710 Acquired absence of both cervix and uterus; Z90.49 Acquired absence of other specified parts of digestive tract; Z98.890 Other specified postprocedural states; Y83.8 Other surgical procedures as the cause of abnormal reaction of the patient, or of later complication, without mention of misadventure at the time of the procedure
CPT/HCPCS: 0241U; 36415; 36430; 51702; 72170; 73701; 80048; 80053; 80202; 81001; 82565; 83605; 83735; 84484; 85025; 85027; 85651; 86140; 86850; 86900; 86901; 86923; 87040; 87070; 87071; 87075; 87077; 87086; 87147; 87186; 87205; 88304; 88311; 89051; 93005; 93010; 94640; 94760; 94762; 96365-59; 96367; 96375-59; 97110; 97112; 97116; 97161; 97166; 97530; 97535; 99285-25; A9270; A9270-GY; C1713; C1751; C1776; J0692; J0696; J1100; J1170; J1650; J1885; J2250; J2405; J2543; J2704; J2765; J3010; J3370; J3480; J7030; J7050; J7120; P9016; Q9967

== ENCOUNTER 2020-10-11 00:47 | Day surgery (SDC) | payer MEDICARE ==
[~2020-10-11 00:47] MED LIST changes: +Acetaminophen325 M1 PO; +DOCU100 PO; +DULCOLAX400 MG/5 M PO; +DULO60 PO; +Dyazide 37.5/251 EA PO; +FAMO20 PO; +FLUTICASONE-SA1 EA11 INH; +Fleet Enema132 ML PR; +Monodox100 MG PO; +Norco 5-325 Ta1 EACH PO; +PROBIOTIC1 EA13 PO; +Vitamin D2000 UNIT PO
== END 2020-10-11 17:30 | disposition home or self-care (01) ==
LOC: ATC 00:47
DX: T84.51XA Infection and inflammatory reaction due to internal right hip prosthesis, initial encounter (principal); R78.81 Bacteremia; B95.62 Methicillin resistant Staphylococcus aureus infection as the cause of diseases classified elsewhere; K21.9 Gastro-esophageal reflux disease without esophagitis; J44.9 Chronic obstructive pulmonary disease, unspecified; I10 Essential (primary) hypertension; F03.90 Unspecified dementia, unspecified severity, without behavioral disturbance, psychotic disturbance, mood disturbance, and anxiety; Y79.2 Prosthetic and other implants, materials and accessory orthopedic devices associated with adverse incidents; Z66 Do not resuscitate; Z96.641 Presence of right artificial hip joint
CPT/HCPCS: 36569; C1751

== ENCOUNTER 2020-10-18 12:46 | Day surgery (SDC) | payer MEDICARE ==
[~2020-10-18] VITALS: Ht 165.1 cm; Wt 71.1 kg
--- NOTE | 2020-10-18 13:56 | NUR ---
Marialuisa Paws warming gown applied. Surgical site prepped with 2% Chlorhexidine cloth wipe. History, Chart, Medications and Allergies reviewed before start of procedure.Lungs clear T/O to Auscultation. Patient confirms NPO status and agrees with scheduled surgery. Pre-Op teaching done. Pt verbalizes understanding. PATIENT ARRIVED AT D/S IN A WHEELCHAIR.
[2020-10-18] MEDS ORDERED: Vancomycin1 GM/2501 IV (14:13)
--- NOTE | 2020-10-18 14:23 | NUR ---
SPOKE TO XIANG WILBURN AT [facility] WHO VERIFIED THAT WILLIS SANCHES RECEIVED VANCOMYCIN 1750MG IV 10/17/[address] PARKINSON REQUEST.
--- NOTE | 2020-10-18 15:04 | NUR ---
10/18/20 1504 Vikas Calzada PATIENT IS ON SCHEDULED ANTIBIOTICS. PATIENT HAS A SUPER PUBIC CATHETER
--- NOTE | 2020-10-18 19:06 | NUR ---
POST OP THRU DISCHARGE PT ARRIVED TO ROOM AT 1700 VIA HOSPITAL BED. PLEASANT BUT SLEEPY. VSS. R HIP SWELLING W/ GAUZE & PRESSURE TAPE OVER. DEO DRAIN W/ SEROUS OUTPUT TO R HIP WELL. PPP. SUPRAPUBIX TRUONG W/ CLEAR URINE. DENIES PAIN & JUST WISHES TO REST. 1729: PT HAS A FEW SIPS OF WATER & DECLINES DINNER. ABX INFUSING TO POWERGLIDE R UPPER ARM. 1814: ABX COMPLETED. PT UP TO CHAIR & DRESSED IN STREET CLOTHES. DRANK FULL ENSURE & WAITING FOR TO ARRIVE. 1829: TO ROOM. PT VERY EMOTIONAL & HAPPY TO SEE HIM. REPEATEDLY STATES SHE WISHES SHE WAS GOING HOME INSTEAD OF RETURNING TO FACILITY. 1834: PT ESCORTED OUT VIA W/C TO HUSBANDS CAR W/ ORDERS IN HAND FOR SANJUANITA. ORDERS ALSO FAXED WELL.
== END 2020-10-18 18:59 | disposition home or self-care (01) ==
LOC: ORSCMMR 12:46 → PRE IP 15:00 → EDSTATUS 15:00 → SURS 16:09 → ORSCMMR 18:59
PROVIDERS: Orthopaedic Surgery
PROC: 0SJ90ZZ Inspection of Right Hip Joint, Open Approach (ICD-10-PCS; 2020-10-18)
PROC: 3E0U029 Introduction of Other Anti-infective into Joints, Open Approach (ICD-10-PCS; principal; 2020-10-18 15:00)
DX: T84.51XA Infection and inflammatory reaction due to internal right hip prosthesis, initial encounter (principal); A49.02 Methicillin resistant Staphylococcus aureus infection, unspecified site; K21.9 Gastro-esophageal reflux disease without esophagitis; F41.9 Anxiety disorder, unspecified; I10 Essential (primary) hypertension; E78.5 Hyperlipidemia, unspecified; J44.9 Chronic obstructive pulmonary disease, unspecified; Z96.642 Presence of left artificial hip joint; Z87.440 Personal history of urinary (tract) infections; Z90.710 Acquired absence of both cervix and uterus; Z98.890 Other specified postprocedural states
CPT/HCPCS: 87071; 87075; 87205; C1713; J0171; J1100; J2405; J2704; J3010; J3370; J7050; J7120

== ENCOUNTER 2020-10-27 10:43 | Day surgery (SDC) | payer MEDICARE ==
[~2020-10-27 10:43] MED LIST changes: +Vancomycin1 GM/2501 IV
--- NOTE | 2020-10-27 15:45 | NUR ---
THIS RN ATTEMPTED 1 TIME FOR POWERGLIDE, ASPEN AUGUSTIN RN CAME IN AND PUT PT POWERGLIDE IN WITH 1 ATTEMPT
== END 2020-10-27 15:38 | disposition home or self-care (01) ==
LOC: ATC 10:43
DX: T82.524A Displacement of infusion catheter, initial encounter (principal); B95.62 Methicillin resistant Staphylococcus aureus infection as the cause of diseases classified elsewhere; T14.8XXA Other injury of unspecified body region, initial encounter; X58.XXXA Exposure to other specified factors, initial encounter; R33.9 Retention of urine, unspecified; I10 Essential (primary) hypertension; E78.5 Hyperlipidemia, unspecified; Z90.49 Acquired absence of other specified parts of digestive tract; Z96.642 Presence of left artificial hip joint
CPT/HCPCS: 99211; C1751; J2001

== ENCOUNTER → 2020-11-18 | Outpatient (CLI) | payer MEDICARE ==
[2020-11-18 13:55] LABS: C DIFFICILE DNA POSITIVE (Negative)
== END | disposition home or self-care (01) ==
LOC: LAB SHORT 10:00
PROVIDERS: Internal Medicine
DX: R19.7 Diarrhea, unspecified (principal)
CPT/HCPCS: 87324; 87493

== ENCOUNTER 2021-03-06 02:53 | Inpatient (IN) | payer MEDICARE ==
[~2021-03-06] VITALS: Ht 157.5 cm; Wt 73.2 kg
[2021-03-06 03:29] LABS: BASOPHILS ABSOLUTE AUTO 0.06 K/mm3 (0.00-0.23); BASOPHILS PERCENT AUTO 1 % (0-2); EOSINOPHILS ABSOLUTE AUTO 0.04 K/mm3 (0.00-0.68); EOSINOPHILS PERCENT AUTO 1 % (0-6); Hematocrit 27.6 % (33.0-51.0); Hemoglobin 8.9 g/dL (11.5-16.0); IMMATURE GRAN ABSOLUTE AUTO 0.04 K/mm3 (0.00-0.10); IMMATURE GRAN PERCENT AUTO 1 % (0-1); LYMPHOCYTES ABSOLUTE AUTO 0.85 K/mm3 (0.84-5.20); LYMPHOCYTES PERCENT AUTO 10 % (21-46); MONOCYTES ABSOLUTE AUTO 0.53 K/mm3 (0.16-1.47); MONOCYTES PERCENT AUTO 7 % (4-13); Mean Corpuscular HGB 29.8 pg (26.0-34.0); Mean Corpuscular HGB Conc 32.2 g/dL (31.5-36.5); Mean Corpuscular Volume 92 fL (80-100); Mean Platelet Volume 9.1 fL (9.1-12.4); NEUTROPHILS ABSOLUTE AUTO 6.68 K/mm3 (1.96-9.15); NEUTROPHILS PERCENT AUTO 81 % (41-73); Platelet Count 337 K/mm3 (150-400); RDW Coefficient Variation 16.1 % (11.7-14.2); RDW Standard Deviation 54.5 fL (35.1-46.3); Red Blood Cell Count 2.99 M/mm3 (3.80-5.20)
[2021-03-06 03:35] LABS: Source, Urine Catheter
[2021-03-06 03:37] LABS: Bilirubin, Urine Neg (Neg); Blood, Urine 1+ (Neg); Glucose Qualitative, Urine Neg (Neg); Ketones, Urine Neg (Neg); Leukocyte Esterase, Urine 3+ (Neg); Nitrite, Urine Neg (Neg); Protein, Urine 1+ (Neg); Urobilinogen, Urine NORM (Normal)
[2021-03-06 03:42] LABS: Alanine Aminotransfer (ALT/SGP 14 U/L (12-78); Albumin/Globulin Ratio 0.7 (0.8-1.8); Alk Phos 107 U/L (50-136); Anion Gap 7 mmol/L (6-16); Aspartate Aminotrans (AST/SGOT 22 U/L (12-37); Bilirubin, Total 0.2 mg/dL (0.1-1.0); Blood Urea Nitrogen 15 mg/dL (8-24); Bun/Creatinine Ratio 28.7 (12.0-20.0); CO2, Blood 28 mmol/L (21-32); Calcium, Blood 8.7 mg/dL (8.5-10.1); Chloride, Blood 100 mmol/L (98-108); Creatinine, Blood 0.52 mg/dL (0.40-1.00); Globulin, Blood 4.6 g/dL (2.2-4.0); Glomerular Filtration Rate >60 (60-); Glucose, Blood 175 mg/dL (70-99); Potassium, Blood 3.8 mmol/L (3.5-5.5); Sodium, Blood 135 mmol/L (136-145); Total Protein, Blood 7.6 g/dL (6.4-8.2)
[2021-03-06 03:46] LABS: Appearance, Urine Hazy (Clear); Bacteria Few /hpf; Color, Urine Yellow (P-Yellow); Red Blood Cells, Urine 0-2 /hpf (0-2); Squamous Epithelial Cells Few /hpf (Few); White Blood Cells, Urine TNTC /hpf (0-5); Yeast/Fungi Urine Mod /hpf
[2021-03-06] MEDS ORDERED: CELE100 PO (09:58)
[2021-03-06] MEDS ORDERED: RAYOS PO (09:59)
[2021-03-06] MEDS ORDERED: SULTRIDS PO (10:00)
[2021-03-06] MEDS ORDERED: BENZ100A PO (10:00)
[2021-03-06] MEDS ORDERED: RIFA300 PO (10:01)
[2021-03-06] MEDS ORDERED: FLUT1DIS5 INH (10:02)
[2021-03-06] MEDS ORDERED: OMEP20ER PO (10:02)
[2021-03-06] MEDS ORDERED: DULO60 PO (10:03)
[2021-03-06] MEDS ORDERED: ALBU90OI6 INH (10:04)
[2021-03-06 11:12] LABS: SARS-Cov-2 (COVID-19) PCR, MMC NEGATIVE (NEGATIVE)
--- NOTE | 2021-03-06 11:41 | NUR ---
03/06/21 1141 Johana Adair PATIENT ARRIVED WITH SUPER PUBIC CATHETER IN PLACE
--- NOTE | 2021-03-06 12:39 | NUR ---
REPORT RECEIVED FROM HYDROCRANE OPERATORSHEILA AT ABOUT 2616
--- NOTE | 2021-03-06 17:54 | NUR ---
SUMMARY: PT IS POD0 FOR INCARCERATED HERNIA REPAIR. PT IS A/O, VSS. SURGICAL SITE WNL. PT HAS BEEN OOB SERVERAL TIMES FOR BM'S. REPORTS TENDERNESS AT ABD, DENIES N/V. PAIN TOLERABLE AFTER FENTANYAL GIVEN, WILL MONITOR. SUPRAPUBIC CATH WNL AND DRAINING. NO ACUTE SAFETY CONCERNS AT THIS TIME. WILL REPORT TO SHAY RN
[2021-03-07 04:44] LABS: BASOPHILS ABSOLUTE AUTO 0.06 K/mm3 (0.00-0.23); BASOPHILS PERCENT AUTO 1 % (0-2); EOSINOPHILS PERCENT AUTO 2 % (0-6); Hematocrit 26.7 % (33.0-51.0); Hemoglobin 8.1 g/dL (11.5-16.0); Mean Corpuscular HGB 29.2 pg (26.0-34.0); Mean Corpuscular HGB Conc 30.3 g/dL (31.5-36.5); Mean Corpuscular Volume 96 fL (80-100); Mean Platelet Volume 9.4 fL (9.1-12.4); Platelet Count 291 K/mm3 (150-400); RDW Coefficient Variation 16.4 % (11.7-14.2); RDW Standard Deviation 57.8 fL (35.1-46.3); Red Blood Cell Count 2.77 M/mm3 (3.80-5.20); White Blood Cell Count 5.78 K/mm3 (4.00-11.30)
[2021-03-07 04:45] LABS: IMMATURE GRAN ABSOLUTE AUTO 0.01 K/mm3 (0.00-0.10); IMMATURE GRAN PERCENT AUTO 0 % (0-1); LYMPHOCYTES ABSOLUTE AUTO 1.37 K/mm3 (0.84-5.20); LYMPHOCYTES PERCENT AUTO 24 % (21-46); MONOCYTES ABSOLUTE AUTO 0.53 K/mm3 (0.16-1.47); MONOCYTES PERCENT AUTO 9 % (4-13); NEUTROPHILS ABSOLUTE AUTO 3.71 K/mm3 (1.96-9.15); NEUTROPHILS PERCENT AUTO 64 % (41-73)
[2021-03-07 05:04] LABS: Anion Gap 7 mmol/L (6-16); Blood Urea Nitrogen 8 mg/dL (8-24); Bun/Creatinine Ratio 16.7 (12.0-20.0); CO2, Blood 28 mmol/L (21-32); Calcium, Blood 8.4 mg/dL (8.5-10.1); Chloride, Blood 106 mmol/L (98-108); Creatinine, Blood 0.48 mg/dL (0.40-1.00); Glomerular Filtration Rate >60 (60-); Glucose, Blood 121 mg/dL (70-99); Potassium, Blood 3.6 mmol/L (3.5-5.5); Sodium, Blood 141 mmol/L (136-145)
--- NOTE | 2021-03-07 06:27 | NUR ---
PT IS A/O, FORGETFUL AT TIMES. DOES NOT USE CALL LIGHT TO MAKE HER NEEDS KNOWN, SHE YELLS OUT. NO EVENTS OVER NIGHT. GAUZE DRSG TO MIDLINE INCISION IS CDI. SUPRAPUBIC CATHETER PATENT, DRAINING YELLOW URINE. DRNG BAG TO GRAVITY. OXYGEN AT 2L PER NC. EXP WHEEZES NOTED. I/S AT BEDSIDE. NO BM DURNING NIGHT.
[2021-03-07] MEDS ORDERED: TRAM50 PO (11:17)
--- NOTE | 2021-03-07 12:30 | NUR ---
DISCHARGE SUMMARY PT A&OX3, VSS, ALESSIA PO, SUPRAPUBIC CATH DRAINING YELLOW URINE, POD1, STERIES DRY/INTACT, DC PACKET PROVIDED TO PT, SCRIPTS FAXED TO [facility] FOR PAIN, FU WITH DR DIAMOND AND PCP. IV DC'D.
== END 2021-03-07 12:09 | disposition home health service (06) | DRG 354 ==
LOC: ER 02:53 → SURS 08:33
PROVIDERS: Student in an Organized Health Care Education/Training Program; Surgery; ADMIT Internal Medicine
PROC: 0WUF0JZ Supplement Abdominal Wall with Synthetic Substitute, Open Approach (ICD-10-PCS; principal; 2021-03-06 10:30)
DX: K42.0 Umbilical hernia with obstruction, without gangrene (principal); E87.1 Hypo-osmolality and hyponatremia; T84.51XA Infection and inflammatory reaction due to internal right hip prosthesis, initial encounter; I10 Essential (primary) hypertension; M54.9 Dorsalgia, unspecified; G89.29 Other chronic pain; J44.9 Chronic obstructive pulmonary disease, unspecified; K21.9 Gastro-esophageal reflux disease without esophagitis; F17.290 Nicotine dependence, other tobacco product, uncomplicated; F41.9 Anxiety disorder, unspecified; B95.62 Methicillin resistant Staphylococcus aureus infection as the cause of diseases classified elsewhere; F32.A Depression, unspecified; Z66 Do not resuscitate; Z88.8 Allergy status to other drugs, medicaments and biological substances; Z22.8 Carrier of other infectious diseases; Z87.440 Personal history of urinary (tract) infections; Z88.5 Allergy status to narcotic agent; Z79.899 Other long term (current) drug therapy; Z79.1 Long term (current) use of non-steroidal anti-inflammatories (NSAID); Z79.82 Long term (current) use of aspirin; Z79.891 Long term (current) use of opiate analgesic; Z79.51 Long term (current) use of inhaled steroids
CPT/HCPCS: 36415; 74177; 80048; 80053; 81001; 83690; 85025; 87086; 93005; 93010; 94640; 94664; 94760; 96374-59; 96375; 96376; 99285-25; A9270; C1781; C9113; J0690; J1100; J1885; J2370; J2405; J2704; J3010; J7030; Q9967; U0004

== ENCOUNTER → 2021-05-17 | Outpatient (CLI) | payer MEDICARE ==
[~2021-05-17] MED LIST changes: +BENZ100A PO; +CELE100 PO; +RAYOS PO; +RIFA300 PO; +SULTRIDS PO; +TRAM50 PO
== END | disposition home or self-care (01) ==
LOC: LAB 16:34 → LAB SHORT 16:34
DX: N39.0 Urinary tract infection, site not specified (principal)
CPT/HCPCS: 87040

== ENCOUNTER → 2021-10-01 | Emergency (ER) | payer MEDICARE ==
[~2021-10-01] VITALS: Ht 167.6 cm; Wt 64.9 kg
== END ==
LOC: ER 12:56
DX: T83.018A Breakdown (mechanical) of other urinary catheter, initial encounter (principal); Y73.8 Miscellaneous gastroenterology and urology devices associated with adverse incidents, not elsewhere classified; B37.9 Candidiasis, unspecified; F17.210 Nicotine dependence, cigarettes, uncomplicated; Z88.5 Allergy status to narcotic agent; Z88.8 Allergy status to other drugs, medicaments and biological substances; Z91.048 Other nonmedicinal substance allergy status; Z79.899 Other long term (current) drug therapy
CPT/HCPCS: 51798

== ENCOUNTER → 2021-11-06 | Outpatient (CLI) | payer MEDICARE | LOC: LAB 13:16 → LAB SHORT 13:16 | DX: R30.9 Painful micturition, unspecified (principal) | CPT/HCPCS: 87086 ==

== ENCOUNTER → 2022-05-25 | Outpatient (CLI) | payer MEDICARE ==
[2022-05-25 15:23] LABS: BASOPHILS ABSOLUTE AUTO 0.07 K/mm3 (0.00-0.23); BASOPHILS PERCENT AUTO 2 % (0-2); EOSINOPHILS ABSOLUTE AUTO 0.26 K/mm3 (0.00-0.68); EOSINOPHILS PERCENT AUTO 7 % (0-6); Hematocrit 31.2 % (33.0-51.0); Hemoglobin 9.7 g/dL (11.5-16.0); IMMATURE GRAN ABSOLUTE AUTO 0.01 K/mm3 (0.00-0.10); IMMATURE GRAN PERCENT AUTO 0 % (0-1); LYMPHOCYTES ABSOLUTE AUTO 1.02 K/mm3 (0.84-5.20); LYMPHOCYTES PERCENT AUTO 27 % (21-46); MONOCYTES ABSOLUTE AUTO 0.24 K/mm3 (0.16-1.47); MONOCYTES PERCENT AUTO 6 % (4-13); Mean Corpuscular HGB 27.7 pg (26.0-34.0); Mean Corpuscular HGB Conc 31.1 g/dL (31.5-36.5); Mean Corpuscular Volume 89 fL (80-100); NEUTROPHILS ABSOLUTE AUTO 2.14 K/mm3 (1.96-9.15); NEUTROPHILS PERCENT AUTO 57 % (41-73); Platelet Count 292 K/mm3 (150-400); RDW Coefficient Variation 17.5 % (11.7-14.2); RDW Standard Deviation 56.3 fL (35.1-46.3); White Blood Cell Count 3.74 K/mm3 (4.00-11.30)
[2022-05-25 16:25] LABS: Alanine Aminotransfer (ALT/SGP 18 U/L (12-78); Albumin, Blood 3.3 g/dL (3.4-5.0); Albumin/Globulin Ratio 0.8 (0.8-1.8); Alk Phos 117 U/L (50-136); Anion Gap 6 mmol/L (6-16); Aspartate Aminotrans (AST/SGOT 14 U/L (12-37); Bilirubin, Total 0.3 mg/dL (0.1-1.0); Blood Urea Nitrogen 16 mg/dL (8-24); CHOL/HDL RATIO 2.1; CO2, Blood 28 mmol/L (21-32); Calcium, Blood 8.5 mg/dL (8.5-10.1); Chloride, Blood 104 mmol/L (98-108); Cholesterol 172 mg/dL (50-200); Globulin, Blood 4.4 g/dL (2.2-4.0); Glucose, Blood 125 mg/dL (70-99); HDL Cholesterol 81 mg/dL (>39); Low Density Lipoprotein Chol 84 mg/dL (0-110); Potassium, Blood 3.5 mmol/L (3.5-5.5); Sodium, Blood 138 mmol/L (136-145); Total Protein, Blood 7.7 g/dL (6.4-8.2); Triglycerides 37 mg/dL (30-160); Very Low Density Lipoprot Chol 7 mg/dL (6-32)
[2022-05-25 16:26] LABS: Creatinine, Blood 0.53 mg/dL (0.40-1.00); Glomerular Filtration Rate 92 (60-)
== END | disposition home or self-care (01) ==
LOC: LAB 13:44 → LAB SHORT 13:44
PROVIDERS: Internal Medicine
DX: I10 Essential (primary) hypertension (principal); E78.5 Hyperlipidemia, unspecified; R73.9 Hyperglycemia, unspecified
CPT/HCPCS: 36415; 80053; 80061; 83036; 85025; 85651

== ENCOUNTER → 2022-08-17 | Outpatient (CLI) | payer MEDICARE ==
[2022-08-17 14:42] LABS: BASOPHILS ABSOLUTE AUTO 0.04 K/mm3 (0.00-0.23); BASOPHILS PERCENT AUTO 1 % (0-2); EOSINOPHILS ABSOLUTE AUTO 0.17 K/mm3 (0.00-0.68); EOSINOPHILS PERCENT AUTO 5 % (0-6); Hematocrit 32.6 % (33.0-51.0); Hemoglobin 10.1 g/dL (11.5-16.0); IMMATURE GRAN ABSOLUTE AUTO 0.01 K/mm3 (0.00-0.10); IMMATURE GRAN PERCENT AUTO 0 % (0-1); LYMPHOCYTES ABSOLUTE AUTO 0.75 K/mm3 (0.84-5.20); LYMPHOCYTES PERCENT AUTO 21 % (21-46); MONOCYTES ABSOLUTE AUTO 0.36 K/mm3 (0.16-1.47); MONOCYTES PERCENT AUTO 10 % (4-13); Mean Corpuscular HGB 28.3 pg (26.0-34.0); Mean Corpuscular Volume 91 fL (80-100); Mean Platelet Volume 8.8 fL (9.1-12.4); NEUTROPHILS ABSOLUTE AUTO 2.27 K/mm3 (1.96-9.15); NEUTROPHILS PERCENT AUTO 63 % (41-73); Platelet Count 233 K/mm3 (150-400); RDW Coefficient Variation 16.8 % (11.7-14.2); RDW Standard Deviation 56.3 fL (35.1-46.3); Red Blood Cell Count 3.57 M/mm3 (3.80-5.20)
[2022-08-17 14:52] LABS: Albumin, Blood 3.4 g/dL (3.4-5.0); Albumin/Globulin Ratio 0.7 (0.8-1.8); Bilirubin, Total 0.3 mg/dL (0.1-1.0); Bun/Creatinine Ratio 20.3 (12.0-20.0); Calcium, Blood 8.6 mg/dL (8.5-10.1); Creatinine, Blood 0.69 mg/dL (0.40-1.00); Globulin, Blood 4.9 g/dL (2.2-4.0); Potassium, Blood 3.3 mmol/L (3.5-5.5); Total Protein, Blood 8.3 g/dL (6.4-8.2)
== END | disposition home or self-care (01) ==
LOC: LAB 14:35 → LAB SHORT 14:35
PROVIDERS: Emergency Medicine
DX: L03.116 Cellulitis of left lower limb (principal)
CPT/HCPCS: 80053; 85025; 85651; 86140

== ENCOUNTER → 2022-08-23 | Outpatient (CLI) | payer MEDICARE | LOC: LAB SHORT 14:45 → LAB 14:45 | DX: L08.0 Pyoderma (principal) | CPT/HCPCS: 87070; 87205 ==

== ENCOUNTER → 2022-09-01 | Outpatient (CLI) | payer MEDICARE | LOC: PLD 15:16 → LAB SHORT 15:16 | DX: R21 Rash and other nonspecific skin eruption (principal) | CPT/HCPCS: 88305; 88312 ==

== ENCOUNTER → 2022-09-12 | Outpatient (CLI) | payer MEDICARE ==
[2022-09-14 10:40] LABS: Stool Occult Bld Immuno 1 Negative (NEGATIVE)
== END ==
LOC: LAB SHORT 19:00
PROVIDERS: Physician Assistant
DX: D64.9 Anemia, unspecified (principal)
CPT/HCPCS: 82274

== ENCOUNTER 2022-10-21 07:24 | Inpatient (IN) | payer OTHER, MEDICARE ==
[~2022-10-21] VITALS: Ht 160 cm; Wt 70.3 kg
[~2022-10-21 07:24] MED LIST changes: +LIDOCAINE1 EACH TOP
[2022-10-21 12:42] LABS: BASOPHILS ABSOLUTE AUTO 0.05 K/mm3 (0.00-0.23); BASOPHILS PERCENT AUTO 1 % (0-2); EOSINOPHILS PERCENT AUTO 3 % (0-6); Hematocrit 27.5 % (33.0-51.0); Hemoglobin 8.5 g/dL (11.5-16.0); IMMATURE GRAN ABSOLUTE AUTO 0.04 K/mm3 (0.00-0.10); IMMATURE GRAN PERCENT AUTO 1 % (0-1); LYMPHOCYTES ABSOLUTE AUTO 0.59 K/mm3 (0.84-5.20); LYMPHOCYTES PERCENT AUTO 9 % (21-46); MONOCYTES ABSOLUTE AUTO 0.43 K/mm3 (0.16-1.47); MONOCYTES PERCENT AUTO 7 % (4-13); Mean Corpuscular HGB 28.1 pg (26.0-34.0); Mean Corpuscular HGB Conc 30.9 g/dL (31.5-36.5); Mean Corpuscular Volume 91 fL (80-100); Mean Platelet Volume 9.1 fL (9.1-12.4); NEUTROPHILS ABSOLUTE AUTO 5.16 K/mm3 (1.96-9.15); NEUTROPHILS PERCENT AUTO 80 % (41-73); Platelet Count 212 K/mm3 (150-400); RDW Coefficient Variation 17.7 % (11.7-14.2); RDW Standard Deviation 58.6 fL (35.1-46.3); Red Blood Cell Count 3.02 M/mm3 (3.80-5.20); White Blood Cell Count 6.47 K/mm3 (4.00-11.30)
[2022-10-21 12:59] LABS: Albumin, Blood 2.7 g/dL (3.4-5.0); Albumin/Globulin Ratio 0.7 (0.8-1.8); Bilirubin, Total 0.5 mg/dL (0.1-1.0); Bun/Creatinine Ratio 18.8 (12.0-20.0); Calcium, Blood 8.5 mg/dL (8.5-10.1); Creatinine, Blood 0.58 mg/dL (0.40-1.00); Globulin, Blood 3.8 g/dL (2.2-4.0); Potassium, Blood 4.1 mmol/L (3.5-5.5); Total Protein, Blood 6.5 g/dL (6.4-8.2)
--- NOTE | 2022-10-21 17:50 | NUR ---
ARRIVAL TO UNIT RECEIVED REPORT FROM ED RN, SONYA MENDOZA. PT ARRIVED TO THE UNIT VIA HOSPITAL BED ACCOMPANIED BY EMERGENCY DEPARTMENT STAFF. PT A/O X4, PT STATED SHE WAS IN 10/10 PAIN (LEFT HIP) UPON ARRIVAL AND ASKED FOR PAIN MEDICATION. PT WAS MEDICATED PER EMAR BY PRIMARY RN. BRUISING NOTED ON PT LEFT HIP. SUPERPUBIC CATHETER NOTED IN LOWER ABDOMEN, SITE IS REDDENED WITH PURULENT DRAINAGE, URINE IS CLOUDY AND DARK YELLOW. PT STATES THAT SHE MIGHT HAVE A UTI (FREQUENT UTI HX). EXPIRATORY WHEEZE HEARD THROUGHOUT ALL LUNG LOBES BILATERALLY. PT IS CURRENTLY ON 2L N/C- MAINTAINING O2 SATURATION >90% (HX OF COPD, NO O2 N/C @ BASELINE). NO DIZZINESS NOTED AT THIS TIME.
[2022-10-21 19:51] VITALS: BP 146/61
[2022-10-21] MEDS ORDERED: CYMBALTA30 M1 PO (21:09)
[2022-10-21] MEDS ORDERED: GABA300 PO (21:10)
[2022-10-21] MEDS ORDERED: HYDCHL50 PO (21:11)
[2022-10-21] MEDS ORDERED: OMEP20ER PO (21:12)
[2022-10-21] MEDS ORDERED: RIFA300 PO (21:13)
[2022-10-21] MEDS ORDERED: BACTRIM DS TAB1 EAC1 PO (21:14)
[2022-10-21] MEDS ORDERED: FERSU300 PO (21:42)
[2022-10-21] MEDS ORDERED: CELE100 PO (21:44)
[2022-10-21] MEDS ORDERED: ZYRTEC10 M2 PO (21:50)
[2022-10-21] MEDS ORDERED: HYDR1TAB94 PO (21:57)
[2022-10-22 04:45] VITALS: BP 163/73
[2022-10-22 05:14] LABS: BASOPHILS ABSOLUTE AUTO 0.05 K/mm3 (0.00-0.23); BASOPHILS PERCENT AUTO 1 % (0-2); EOSINOPHILS ABSOLUTE AUTO 0.21 K/mm3 (0.00-0.68); EOSINOPHILS PERCENT AUTO 4 % (0-6); Hematocrit 27.3 % (33.0-51.0); Hemoglobin 8.3 g/dL (11.5-16.0); IMMATURE GRAN ABSOLUTE AUTO 0.02 K/mm3 (0.00-0.10); IMMATURE GRAN PERCENT AUTO 0 % (0-1); LYMPHOCYTES ABSOLUTE AUTO 0.63 K/mm3 (0.84-5.20); LYMPHOCYTES PERCENT AUTO 11 % (21-46); MONOCYTES ABSOLUTE AUTO 0.37 K/mm3 (0.16-1.47); MONOCYTES PERCENT AUTO 6 % (4-13); Mean Corpuscular HGB 27.9 pg (26.0-34.0); Mean Corpuscular HGB Conc 30.4 g/dL (31.5-36.5); Mean Corpuscular Volume 92 fL (80-100); Mean Platelet Volume 9.1 fL (9.1-12.4); NEUTROPHILS ABSOLUTE AUTO 4.53 K/mm3 (1.96-9.15); NEUTROPHILS PERCENT AUTO 78 % (41-73); Platelet Count 203 K/mm3 (150-400); RDW Coefficient Variation 17.8 % (11.7-14.2); RDW Standard Deviation 59.9 fL (35.1-46.3); Red Blood Cell Count 2.98 M/mm3 (3.80-5.20); White Blood Cell Count 5.81 K/mm3 (4.00-11.30)
--- NOTE | 2022-10-22 05:28 | NUR ---
SHIFT SUMMARY VSS. PT SLEPT ON AND OFF T/O THE NIGHT. PAIN WAS DIFFICULT TO MANAGE T/O THE NIGHT. THE PT BECOMES VERY ANXIOUS AND RESTLESS WHEN SHE FEELS ANY PAIN. PT WAS CONFUSED T/O THE NIGHT. TRYING TO GET OUT OF BED AND CALLING OUT FOR HELP. THE PT OFTEN FORGOT WHAT SHE WAS REQUIRING HELP WITH. PT WAS DIFFICULT TO REDIRECT BUT CALMED DOWN GREATLY WITH SOMEONE AT THE BEDSIDE. CIRCULATION AND SENSATION REMAINS INTACT IN LLE. PT DID NOT GET OOB D/T PAIN AND MENTATION. IV FLUIDS INFUSING T/O THE NIGHT, SUPRAPUBIC CATH REMAINS IN PLACE. PURULENT DRAINAGE FROM INSERTION SITE NOTED. CLOUDY FOUL URINE IN BAG. ORTHO CONSULT IN PLACE, NO PLAN FOR SURGERY AT THIS TIME. PT NEEDS CATH REPLACED FOR A URINE SAMPLE TO BE RUN. AWAITING FURTHER ORDERS AT THIS TIME. THE PATIENT IS CURRENTLY SLEEPING, BED ALARM ON FOR SAFETY, CALL LIGHT IN REACH
[2022-10-22 05:50] LABS: Albumin, Blood 2.6 g/dL (3.4-5.0); Anion Gap 7 mmol/L (6-16); Blood Urea Nitrogen 13 mg/dL (8-24); Bun/Creatinine Ratio 24.4 (12.0-20.0); CO2, Blood 25 mmol/L (21-32); Calcium, Blood 8.4 mg/dL (8.5-10.1); Chloride, Blood 107 mmol/L (98-108); Creatinine, Blood 0.53 mg/dL (0.40-1.00); Glomerular Filtration Rate 92 (60-); Glucose, Blood 111 mg/dL (70-99); Phosphorus, Blood 3.3 mg/dL (2.5-4.9); Potassium, Blood 3.9 mmol/L (3.5-5.5); Sodium, Blood 139 mmol/L (136-145)
[2022-10-22 07:19] VITALS: BP 182/92
[2022-10-22 08:32] LABS: Stool Occult Blood Guaiac 1 Neg (Neg)
[2022-10-22 09:10] LABS: Source, Urine Suprapubic Cath
[2022-10-22 09:42] LABS: Appearance, Urine Cloudy (Clear); Bilirubin, Urine Neg (Neg); Blood, Urine 1+ (Neg); Color, Urine Yellow (P-Yellow); Glucose Qualitative, Urine Neg (Neg); Ketones, Urine 3+ (Neg); Leukocyte Esterase, Urine 3+ (Neg); Nitrite, Urine Pos (Neg); Protein, Urine 1+ (Neg); Specific Gravity, Urine 1.015 (1.003-1.022); Urobilinogen, Urine NORM (Normal)
[2022-10-22 10:01] LABS: White Blood Cells, Urine 50-100 /hpf (0-5)
--- NOTE | 2022-10-22 10:06 | NUR ---
SHIFT UPDATE SINCE MY ASSESSMENT ON 10/21/22 PT HAS BEEN INCREASINGLY MORE ANXIOUS, PAINFUL, AND CONFUSED. PT HAS ALSO HAD INCREASED OXYGEN NEEDS, CONTINUOUS BIOX ON PT MAINTAINING BETWEEN 90-92%, FROTHY SPUTUM, AND AUDIBLE WHEEZES IN ALL LUNG LOBES. DR. CASTLE WAS CALLED AND UPDATED ON THE PATIENT'S CURRENT STATUS. DR. CASTLE PUT IN ORDERS FOR A CHEST XRAY AND 0.[address] CASTLE STATED HE WOULD COME AND EVALUATE HER. CALL LIGHT IN REACH. WILL CONTINUE TO MONITOR
[2022-10-22 10:09] LABS: Bacteria Many /hpf; Squamous Epithelial Cells Many /hpf (Few)
[2022-10-22 10:11] LABS: Mucus Light (0-Heavy); Uric Acid Crystals Few /hpf
[2022-10-22 10:12] LABS: Renal Epithelial Rare /hpf (0-Rare); Transitional Epithelial Cells Rare /hpf (0-Rare)
--- NOTE | 2022-10-22 10:59 | NUR ---
MEDICATION DR. CASTLE NOTIFIED OF THIS NURSING STUDENTS MEDICATION ERROR. HYDROCHLOITHIAZIDE 25MG WAS ADMINISTERED INSTEAD OF 12.[address] CASTLE AWARE.
[2022-10-22 14:41] VITALS: BP 142/72
--- NOTE | 2022-10-22 17:02 | NUR ---
SHIFT SUMMARY PT A/OX3. PT WAS CONFUSED AND UNDIRECTABLE FOR THE MORNING. O2 IS CURRENTLY 92% ON 2L N/C. PT WENT FOR ORDERED CHEST XRAY. PT WAS MEDICATED FOR PAIN AND ANXIETY PER THE EMAR. LASIX WERE ORDERED AND ADMINISTERED AND PT'S OUTPUT HAS BEEN >1300 SINCE ADMINISTRATION- BREATHING HAS IMPROVED AND WHEEZING HAS RESOLVED. THE PATIENT IS BEING MEDICATED PER EMAR WITH DILAUDID FOR PAIN AND ATIVAN FOR ANXIETY. ANXIETY HAS IMPROVED AND THE PATIENT HAS BEEN ABLE TO REST THROUGHOUT THE SHIFT. PAIN IS BEING MANAGED AT 6/10. DR. COELHO CONSULTED AND STATED THAT THE PELVIC FX IS NON-SURGICAL.
[2022-10-22 19:56] VITALS: BP 91/46
[2022-10-23 02:51] VITALS: BP 144/63
--- NOTE | 2022-10-23 03:30 | NUR ---
PT BIOX DECREASED TO 80'S, PT MOUTH BREATHING, PLACED NC AT EDGE OF MOUTH WITH IMMEDIATE INCREASE IN BIOX TO 97-100%
--- NOTE | 2022-10-23 03:50 | NUR ---
ASSISTED PT TO LAY IN LEFT SIDE. PT REQUESTED DENTURES AND GLASSES. PT HUMOROUS WITH NOW SHE CAN HEAR ME AND SEE ME. WHILE LAUGHED AT MY REPLY "AND BITE ME"
--- NOTE | 2022-10-23 04:47 | NUR ---
SHIFT SUMMARY VSS. BP'S REMAIN LABILE. PT'S O2 REQUIREMENTS WAXED AND WANED BETWEEN 3.5 AND 5 L VIA NC. THE PT IS CURRENTLY REQUIRING 5 L. THE PT WAS VERY DROWSY T/O THE SHIFT, MEDICATED ONCE WITH ATIVAN FOR ANXIETY AND ONCE WITH DILAUDID FOR PAIN WTIH GOOD RESULTS. IV FLUIDS INFUSING T/O THE NIGHT, PO INTAKE ONLY NOTED WITH MEDS. MINMAL URINE OUTPUT NOTED, URINE REMAINS DARK YELLOW, CLOUDY, AND FOUL SMELLING. PURULENT DISCHARGE FROM SUPRAPUBIC SITE HAS IMPROVED, MINIMAL EXUDATE NOTED. DARK FORMED BM NOTED IN BRIEF. PT REPOSITIONED T/O THE NIGHT. NO ACUTE EVENTS NOTED T/O THE NIGHT. PLAN FOR PT TO HAVE AN ECHO AND CONTINUE TO RECIEVE STEROIDS/LASIX FOR NEW PULMONARY EDEMA. THE PATIENT IS CURRENTLY SLEEPING, IN NO DISTRESS, CALL LIGHT IN REACH, BED ALARM ON FOR SAFETY.
[2022-10-23 06:14] LABS: BASOPHILS ABSOLUTE AUTO 0.02 K/mm3 (0.00-0.23); BASOPHILS PERCENT AUTO 0 % (0-2); EOSINOPHILS PERCENT AUTO 2 % (0-6); Hematocrit 25.5 % (33.0-51.0); IMMATURE GRAN ABSOLUTE AUTO 0.05 K/mm3 (0.00-0.10); IMMATURE GRAN PERCENT AUTO 1 % (0-1); LYMPHOCYTES ABSOLUTE AUTO 0.68 K/mm3 (0.84-5.20); LYMPHOCYTES PERCENT AUTO 13 % (21-46); MONOCYTES ABSOLUTE AUTO 0.46 K/mm3 (0.16-1.47); MONOCYTES PERCENT AUTO 9 % (4-13); Mean Corpuscular HGB 28.5 pg (26.0-34.0); Mean Corpuscular HGB Conc 31.4 g/dL (31.5-36.5); Mean Corpuscular Volume 91 fL (80-100); Mean Platelet Volume 9.3 fL (9.1-12.4); NEUTROPHILS ABSOLUTE AUTO 3.88 K/mm3 (1.96-9.15); NEUTROPHILS PERCENT AUTO 75 % (41-73); Platelet Count 194 K/mm3 (150-400); RDW Coefficient Variation 17.9 % (11.7-14.2); Red Blood Cell Count 2.81 M/mm3 (3.80-5.20); White Blood Cell Count 5.19 K/mm3 (4.00-11.30)
[2022-10-23 06:37] LABS: Albumin, Blood 2.4 g/dL (3.4-5.0); Anion Gap 4 mmol/L (6-16); Blood Urea Nitrogen 18 mg/dL (8-24); Bun/Creatinine Ratio 29.8 (12.0-20.0); CO2, Blood 26 mmol/L (21-32); Chloride, Blood 108 mmol/L (98-108); Creatinine, Blood 0.61 mg/dL (0.40-1.00); Glomerular Filtration Rate 89 (60-); Glucose, Blood 105 mg/dL (70-99); Phosphorus, Blood 3.2 mg/dL (2.5-4.9); Potassium, Blood 3.8 mmol/L (3.5-5.5); Sodium, Blood 138 mmol/L (136-145)
[2022-10-23 07:23] VITALS: BP 145/62
--- NOTE | 2022-10-23 14:44 | NUR ---
PT REPORTS HAVING MUSCLE SPASMS AND REPORTS ELEVATED PAIN. DR. WALLACE NOTIFIED AND STATED SHE WILL ORDER A MUSCLE RELAXANT. PT ASSISTED TO REPOSITION AND REPORTED IMPROVED PAIN MANAGEMENT.
[2022-10-23 15:34] VITALS: BP 138/57
--- NOTE | 2022-10-23 15:44 | NUR ---
SHIFT ASSESSMENT THIS RN AGREES WITH ASSESSMENT DOCUMENTATION BY SYLVIA SRINIVASAN STUDENT NURSE.
--- NOTE | 2022-10-23 18:17 | NUR ---
SHIFT SUMMARY PT IS A&OX4, TOLERATING PO, VSS, VOIDING VIA SUPRAPUBIC CATHETER, AND WORKED WITH PHYSICAL THERAPY THIS AFTERNOON. PT IS BEDFAST AND PAIN OUT OF PROPORTION. PAIN MANAGED WITH OXY, TYLENOL, ICE/HEAT THERAPY, AND DEEP BREATHING. PT HAS DIMINISHED LUNG SOUNDS IN THE MID AND BASES WITH EXPIRATORY WHEEZES. PT IS ON 2L OF O2 NASAL CANNULA WHICH HAS BEEN TITRATED THROUGHOUT SHIFT. PT WAS EDUCATED ON INCENTIVE SPIROMETRY, COUGH, AND DEEP BREATHING. PT IS ON TELE WITH REGULAR SINUS RHYTHM. WILL CONTINUE TO MONITOR AND REPORT TO ONCOMING RN.
[2022-10-23 19:37] VITALS: BP 128/58
[2022-10-24 04:34] VITALS: BP 149/60
[2022-10-24 06:50] LABS: BASOPHILS ABSOLUTE AUTO 0.03 K/mm3 (0.00-0.23); BASOPHILS PERCENT AUTO 1 % (0-2); EOSINOPHILS PERCENT AUTO 4 % (0-6); Hematocrit 25.7 % (33.0-51.0); Hemoglobin 8.2 g/dL (11.5-16.0); IMMATURE GRAN ABSOLUTE AUTO 0.06 K/mm3 (0.00-0.10); IMMATURE GRAN PERCENT AUTO 1 % (0-1); LYMPHOCYTES ABSOLUTE AUTO 0.71 K/mm3 (0.84-5.20); LYMPHOCYTES PERCENT AUTO 14 % (21-46); MONOCYTES ABSOLUTE AUTO 0.54 K/mm3 (0.16-1.47); MONOCYTES PERCENT AUTO 10 % (4-13); Mean Corpuscular HGB 28.7 pg (26.0-34.0); Mean Corpuscular HGB Conc 31.9 g/dL (31.5-36.5); Mean Corpuscular Volume 90 fL (80-100); Mean Platelet Volume 8.7 fL (9.1-12.4); NEUTROPHILS ABSOLUTE AUTO 3.68 K/mm3 (1.96-9.15); NEUTROPHILS PERCENT AUTO 71 % (41-73); Platelet Count 199 K/mm3 (150-400); RDW Standard Deviation 59.9 fL (35.1-46.3); Red Blood Cell Count 2.86 M/mm3 (3.80-5.20); White Blood Cell Count 5.22 K/mm3 (4.00-11.30)
--- NOTE | 2022-10-24 06:52 | NUR ---
SHIFT SUMMARY AOX4. ANSWERS QUESTIONS APPROP. CAN BE FORGETFUL. YELLS OUT FREQUENTLY. CONSTANTLY STATING PAIN 10/10 IN L HIP, LOW BACK, ALONG c HAVING MUSCLE SPASMS R LEG. MEDICATED c TIZANIDINE & OXYCODONE @HS, NO PAIN RELIEF PER PT. AROUND 0000 MEDICATED c TYLENOL & ATIVAN PER EMAR, STILL NO PAIN RELIEF, MEDICATED 2x c 0.5MG DILAUDID & PT FINALLY ABLE TO REST COMFORTABLY W/O YELLING OUT. VSS. SPO2 >92% ON 2L O2. CALL LIGHT & BED ALARM IN PLACE.
[2022-10-24 07:11] LABS: Albumin, Blood 2.5 g/dL (3.4-5.0); Anion Gap 6 mmol/L (6-16); Blood Urea Nitrogen 13 mg/dL (8-24); CO2, Blood 27 mmol/L (21-32); Calcium, Blood 8.7 mg/dL (8.5-10.1); Chloride, Blood 106 mmol/L (98-108); Creatinine, Blood 0.52 mg/dL (0.40-1.00); Glomerular Filtration Rate 92 (60-); Glucose, Blood 125 mg/dL (70-99); Potassium, Blood 3.9 mmol/L (3.5-5.5); Sodium, Blood 139 mmol/L (136-145)
[2022-10-24 07:28] VITALS: BP 158/67
[2022-10-24 15:44] VITALS: BP 113/55
--- NOTE | 2022-10-24 17:14 | NUR ---
SUMMARY NO ACUTE CHANGES T/O SHIFT. PT MEDICATED PER ORDERS FOR PAIN T/O DAY. RELUCTANT TO PARTICIPATE IN THERAPY DUE TO FEAR/PAIN. BECAME VERY ANXIOUS WHEN WORKING WITH OCCUPATIONAL THERAPY. FAMILY IN TO SEE PT TODAY. PT SLEPT THIS AFTERNOON. NOW AWAKE AND REPORTED FEELING MORE RESTED. CALL LIGHT IN REACH AND BED ALARM ON. REPOSITIONED AND PT IS USING IS.
[2022-10-24 19:16] VITALS: BP 109/50
[2022-10-25 04:07] VITALS: BP 163/68
[2022-10-25 05:18] LABS: BASOPHILS ABSOLUTE AUTO 0.06 K/mm3 (0.00-0.23); BASOPHILS PERCENT AUTO 2 % (0-2); EOSINOPHILS ABSOLUTE AUTO 0.22 K/mm3 (0.00-0.68); EOSINOPHILS PERCENT AUTO 6 % (0-6); Hematocrit 27.3 % (33.0-51.0); Hemoglobin 8.6 g/dL (11.5-16.0); IMMATURE GRAN PERCENT AUTO 3 % (0-1); LYMPHOCYTES PERCENT AUTO 21 % (21-46); MONOCYTES PERCENT AUTO 11 % (4-13); Mean Corpuscular HGB 28.1 pg (26.0-34.0); Mean Corpuscular HGB Conc 31.5 g/dL (31.5-36.5); Mean Corpuscular Volume 89 fL (80-100); Mean Platelet Volume 9.4 fL (9.1-12.4); NEUTROPHILS ABSOLUTE AUTO 2.23 K/mm3 (1.96-9.15); NEUTROPHILS PERCENT AUTO 59 % (41-73); Platelet Count 211 K/mm3 (150-400); RDW Coefficient Variation 18.1 % (11.7-14.2); RDW Standard Deviation 59.1 fL (35.1-46.3); Red Blood Cell Count 3.06 M/mm3 (3.80-5.20); White Blood Cell Count 3.81 K/mm3 (4.00-11.30)
[2022-10-25 07:01] VITALS: BP 170/64
[2022-10-25 14:27] VITALS: BP 143/67
--- NOTE | 2022-10-25 17:26 | NUR ---
SHIFT SUMMARY: LEFT HIP FX NON SURGICAL PATIENT IS A&OX4. VS ARE WNL AND ON RA. PATIENT REPORTS "I HAVE IMPROVED PAIN COMPARED TO THIS MORNING!". PATIENT HAS BEEN GETTING NAPROXIN, LYRICA, TYLENOL, AND OXY PO THAT HAVE HELPED WITH HER SCITICA PAIN IN HER RIGHT LOWER BACK. PATIENT WAS ABLE TO WORK WITH PHYSICAL THERAPY MORE THIS AFTERNOON. SHE IS TOLERATING PO INTAKE AND HAS HER CHRONIC TRUONG WITH ORANGE COLORED URINE. HER LEFT HIP IS SWOLLEN/BRUISED BUT DENIES NUMBNESS OR TINGLING IN ALL EXTREMITIES. PATIENT CALLS APPROPRIATELY. SHE IS LAYING IN BED WITH CALL LIGHT IN REACH.
[2022-10-25 21:09] VITALS: BP 143/61
--- NOTE | 2022-10-26 04:30 | NUR ---
SUMMARY PATIENT IS AOX3-4 WITH FORGETFULNESS. CAMERA AND BED ALARM IN PLACE FOR SAFETY. PATIENT HAS NON-SURGICAL L HIP FX FROM [facility] AT HOME. BRUISING NOTED ON L HIP AND INNER GROIN. PATIENT HAS CHRONIN INDWELLING SUPRAPUBIC CATHETER, THAT IS DRAINING ORANGE/YELLOW URINE. CONT. BIOC IN PLACE. DESATING WHILE ASLEEP 2L NC O2 PLACED TO KEEP SPO2 ABOVE 90%. CURRENTLY SPO2 ABOVE 95%. TOLERATING PO INTAKE AND REPOSITIONED T/O SHIFT. MEDICATED FOR PAIN AND MUSCLE SPASMS PER EMAR. TOLERATED WELL. PATIENT SLEEPS T/O SHIFT. VSS. CALLS APPROPRIATELY WITH CALL LIGHT.
[2022-10-26 05:04] VITALS: BP 147/60
[2022-10-26 07:38] VITALS: BP 129/51
[2022-10-26 10:39] LABS: SARS-Cov-2 (COVID-19) PCR, MMC NEGATIVE (NEGATIVE)
--- NOTE | 2022-10-26 11:26 | NUR ---
Pt. is awake in bed and welcmoes my visit. Pt. is pleasant, but is unsettled by her broken pelvis. Listen to he Pt. with empathy and a calming presence. Pt. is a woman of tomy, so we considered matters of tomy and practice, and established rapport. Pt. requested prayer so we prayed together. Pt. verbalized expectation that she would be transferred to [facility] later today. Pt. verbalized graitude for the spiritual care visit.
[2022-10-26 14:40] VITALS: BP 146/68
--- NOTE | 2022-10-26 15:12 | NUR ---
CALLED REPORT CALLED REPORT TO [facility]. PT WILL DISCHARGE AT 1533
--- NOTE | 2022-10-26 15:39 | NUR ---
DISCHARGE SUMMARY PT A&0 X3, FORGETFUL AT ITMES BUT ABLE TO REORIENTATE EASILY. PT COMPLAINS OF PAIN AND MEDICATED PER EMAR. PT ON 2L NC SATTING ABOVE 95%, DISCHARGING ON O2. PT DISCHARGED TO [facility] PT LEFT WITH ALL BELONGINGS. ALL IVS PULLED OUT. CALLED REPORT TO [facility]. NO OTHER QUESTIONS AT THIS TIME.
== END 2022-10-26 15:35 | DRG 535 ==
LOC: ER 07:24 → SURS 16:30 → MEDS 16:30 → SURS 16:42
PROVIDERS: Family Medicine; Physician Assistant; ADMIT Internal Medicine Endocrinology, Diabetes & Metabolism
DX: S32.492A Other specified fracture of left acetabulum, initial encounter for closed fracture (principal); J96.21 Acute and chronic respiratory failure with hypoxia; M97.02XA Periprosthetic fracture around internal prosthetic left hip joint, initial encounter; J44.1 Chronic obstructive pulmonary disease with (acute) exacerbation; I50.30 Unspecified diastolic (congestive) heart failure; I11.0 Hypertensive heart disease with heart failure; Z66 Do not resuscitate; M54.9 Dorsalgia, unspecified; M81.0 Age-related osteoporosis without current pathological fracture; M06.9 Rheumatoid arthritis, unspecified; K21.9 Gastro-esophageal reflux disease without esophagitis; R73.03 Prediabetes; D50.9 Iron deficiency anemia, unspecified; H35.30 Unspecified macular degeneration; E66.3 Overweight; G89.4 Chronic pain syndrome; M54.31 Sciatica, right side; F41.8 Other specified anxiety disorders; Y83.8 Other surgical procedures as the cause of abnormal reaction of the patient, or of later complication, without mention of misadventure at the time of the procedure; W01.0XXA Fall on same level from slipping, tripping and stumbling without subsequent striking against object, initial encounter; Z20.822 Contact with and (suspected) exposure to COVID-19; Z68.27 Body mass index [BMI] 27.0-27.9, adult; Z88.1 Allergy status to other antibiotic agents; Z88.5 Allergy status to narcotic agent; Z91.81 History of falling; Z90.710 Acquired absence of both cervix and uterus; Z86.14 Personal history of Methicillin resistant Staphylococcus aureus infection; Z88.8 Allergy status to other drugs, medicaments and biological substances; Z86.718 Personal history of other venous thrombosis and embolism; Z87.440 Personal history of urinary (tract) infections; Z98.890 Other specified postprocedural states; Z96.643 Presence of artificial hip joint, bilateral; Z87.891 Personal history of nicotine dependence; Z79.891 Long term (current) use of opiate analgesic; Z79.899 Other long term (current) drug therapy; Z79.51 Long term (current) use of inhaled steroids; Z79.52 Long term (current) use of systemic steroids; Z87.19 Personal history of other diseases of the digestive system; Z90.49 Acquired absence of other specified parts of digestive tract; Z98.1 Arthrodesis status
CPT/HCPCS: 36415; 71045; 71046; 72100; 72192; 72220; 73522; 80053; 80069; 81001; 82272; 83880; 85025; 87077; 87086; 87186; 93306; 94640; 94664; 94762; 96374; 96375; 96376; 97110; 97110-CQ; 97162; 97166; 97530; 99285-25; A9270; J1170; J1650; J1885; J1940; J1956; J2060; J2920; J3480; J7512; U0002

== ENCOUNTER 2023-01-16 21:31 | Emergency (ER) | payer MEDICARE ==
[~2023-01-16] VITALS: Ht 167.6 cm; Wt 68.0 kg
[~2023-01-16 21:31] MED LIST changes: +BACTRIM DS TAB1 EAC1 PO; +CYMBALTA30 M1 PO; +FERSU300 PO; +HYDCHL50 PO; +ZYRTEC10 M2 PO
[2023-01-16 21:47] VITALS: BP 162/80
[2023-01-16 23:18] LABS: BASOPHILS ABSOLUTE AUTO 0.04 K/mm3 (0.00-0.23); BASOPHILS PERCENT AUTO 1 % (0-2); EOSINOPHILS ABSOLUTE AUTO 0.19 K/mm3 (0.00-0.68); EOSINOPHILS PERCENT AUTO 4 % (0-6); Hematocrit 30.5 % (33.0-51.0); Hemoglobin 9.7 g/dL (11.5-16.0); IMMATURE GRAN ABSOLUTE AUTO 0.01 K/mm3 (0.00-0.10); IMMATURE GRAN PERCENT AUTO 0 % (0-1); LYMPHOCYTES ABSOLUTE AUTO 0.83 K/mm3 (0.84-5.20); LYMPHOCYTES PERCENT AUTO 16 % (21-46); MONOCYTES ABSOLUTE AUTO 0.51 K/mm3 (0.16-1.47); MONOCYTES PERCENT AUTO 10 % (4-13); Mean Corpuscular HGB 30.5 pg (26.0-34.0); Mean Corpuscular HGB Conc 31.8 g/dL (31.5-36.5); Mean Corpuscular Volume 96 fL (80-100); Mean Platelet Volume 9.9 fL (9.1-12.4); NEUTROPHILS ABSOLUTE AUTO 3.64 K/mm3 (1.96-9.15); NEUTROPHILS PERCENT AUTO 70 % (41-73); Platelet Count 186 K/mm3 (150-400); RDW Coefficient Variation 14.7 % (11.7-14.2); RDW Standard Deviation 51.8 fL (35.1-46.3); Red Blood Cell Count 3.18 M/mm3 (3.80-5.20); White Blood Cell Count 5.22 K/mm3 (4.00-11.30)
[2023-01-16 23:36] LABS: Albumin, Blood 3.1 g/dL (3.4-5.0); Albumin/Globulin Ratio 0.8 (0.8-1.8); Bilirubin, Total 0.2 mg/dL (0.1-1.0); Bun/Creatinine Ratio 21.2 (12.0-20.0); Calcium, Blood 8.5 mg/dL (8.5-10.1); Creatinine, Blood 0.61 mg/dL (0.40-1.00); Globulin, Blood 3.7 g/dL (2.2-4.0); Total Protein, Blood 6.8 g/dL (6.4-8.2)
[2023-01-16 23:56] LABS: Influenza A, PCR NEGATIVE (NEGATIVE); Influenza B, PCR NEGATIVE (NEGATIVE); Resp Syncytial Virus, PCR NEGATIVE (NEGATIVE); SARS-Cov-2 (COVID-19) PCR, MMC NEGATIVE (NEGATIVE)
[2023-01-17] MEDS ORDERED: AZIT250 PO (00:11)
[2023-01-17] MEDS ORDERED: CEFP200 PO (00:11)
[2023-01-17] MEDS ORDERED: PRED20 PO (00:31)
[2023-01-18] MEDS ORDERED: CELE100 PO (18:10)
[2023-01-18] MEDS ORDERED: METO25ER PO (20:49)
== END 2023-01-17 04:48 | disposition home or self-care (01) ==
LOC: ER 21:31
PROVIDERS: Emergency Medicine
DX: J44.1 Chronic obstructive pulmonary disease with (acute) exacerbation (principal); D64.9 Anemia, unspecified; Z88.5 Allergy status to narcotic agent; Z88.8 Allergy status to other drugs, medicaments and biological substances; Z91.048 Other nonmedicinal substance allergy status; Z79.899 Other long term (current) drug therapy; M06.9 Rheumatoid arthritis, unspecified; I10 Essential (primary) hypertension; K21.9 Gastro-esophageal reflux disease without esophagitis; F17.290 Nicotine dependence, other tobacco product, uncomplicated; Z87.891 Personal history of nicotine dependence; Z20.822 Contact with and (suspected) exposure to COVID-19
CPT/HCPCS: 0241U; 71045; 80053; 85025; 93005; 93010; 94644; 94664; 96374; 99284-25; A9270; J2930

== ENCOUNTER 2023-01-18 11:07 | Inpatient (IN) | payer MEDICARE ==
[~2023-01-18] VITALS: Ht 167.6 cm; Wt 71.0 kg
[~2023-01-18 11:07] MED LIST changes: +AZIT250 PO; +PRED20 PO
[2023-01-18 12:07] LABS: BASOPHILS ABSOLUTE AUTO 0.05 K/mm3 (0.00-0.23); BASOPHILS PERCENT AUTO 1 % (0-2); EOSINOPHILS ABSOLUTE AUTO 0.03 K/mm3 (0.00-0.68); EOSINOPHILS PERCENT AUTO 1 % (0-6); Hematocrit 30.9 % (33.0-51.0); Hemoglobin 10.1 g/dL (11.5-16.0); IMMATURE GRAN ABSOLUTE AUTO 0.02 K/mm3 (0.00-0.10); IMMATURE GRAN PERCENT AUTO 0 % (0-1); LYMPHOCYTES ABSOLUTE AUTO 0.78 K/mm3 (0.84-5.20); LYMPHOCYTES PERCENT AUTO 14 % (21-46); MONOCYTES ABSOLUTE AUTO 0.27 K/mm3 (0.16-1.47); MONOCYTES PERCENT AUTO 5 % (4-13); Mean Corpuscular HGB Conc 32.7 g/dL (31.5-36.5); Mean Corpuscular Volume 95 fL (80-100); Mean Platelet Volume 10.3 fL (9.1-12.4); NEUTROPHILS PERCENT AUTO 79 % (41-73); Platelet Count 223 K/mm3 (150-400); RDW Standard Deviation 51.9 fL (35.1-46.3); Red Blood Cell Count 3.26 M/mm3 (3.80-5.20); White Blood Cell Count 5.55 K/mm3 (4.00-11.30)
[2023-01-18 12:18] LABS: Albumin, Blood 3.8 g/dL (3.4-5.0); Bilirubin, Total 0.6 mg/dL (0.1-1.0); Bun/Creatinine Ratio 17.9 (12.0-20.0); Calcium, Blood 9.3 mg/dL (8.5-10.1); Creatinine, Blood 0.45 mg/dL (0.40-1.00); Globulin, Blood 3.7 g/dL (2.2-4.0); Magnesium, Blood 1.7 mg/dL (1.6-2.4); Potassium, Blood 4.3 mmol/L (3.5-5.5); Total Protein, Blood 7.5 g/dL (6.4-8.2)
[2023-01-18 13:08] LABS: International Normalized Ratio 1.03; Prothrombin Time Results 10.8 Sec (9.7-11.5)
[2023-01-18 17:47] LABS: Source, Urine Clean Catch
[2023-01-18 17:54] LABS: Appearance, Urine Clear (Clear); Bilirubin, Urine Neg (Neg); Blood, Urine 1+ (Neg); Color, Urine Yellow (P-Yellow); Glucose Qualitative, Urine Neg (Neg); Ketones, Urine 1+ (Neg); Leukocyte Esterase, Urine Neg (Neg); Nitrite, Urine Neg (Neg); Protein, Urine Neg (Neg); Urobilinogen, Urine NORM (Normal)
[2023-01-18 18:01] LABS: White Blood Cells, Urine 0-2 /hpf (0-5)
[2023-01-18 18:02] LABS: Bacteria Few /hpf; Squamous Epithelial Cells Few /hpf (Few)
--- NOTE | 2023-01-18 18:05 | NUR ---
PT CHART REVIEWED FOR ADMISSION
[2023-01-18] MEDS ORDERED: CELE100 PO (18:10)
[2023-01-18 19:09] LABS: Adenovirus Not Detected (NOT DETECT); Bordetella pertussis Not Detected (NOT DETECT); Chlamydophila pneumoniae Not Detected (NOT DETECT); Coronavirus 229E Not Detected (NOT DETECT); Coronavirus HKU1 Not Detected (NOT DETECT); Coronavirus NL63 Not Detected (NOT DETECT); Coronavirus OC43 Not Detected (NOT DETECT); Human Metapneumovirus Not Detected (NOT DETECT); Human Rhinovirus/Enterovirus Not Detected (NOT DETECT); Influenza A/2009-H1 Not Detected (NOT DETECT); Influenza A/H1 Not Detected (NOT DETECT); Influenza A/H3 Not Detected (NOT DETECT); Influenza B Not Detected (NOT DETECT); Mycoplasma pneumoniae Not Detected (NOT DETECT); Parainfluenza Virus 1 Not Detected (NOT DETECT); Parainfluenza Virus 2 Not Detected (NOT DETECT); Parainfluenza Virus 3 Not Detected (NOT DETECT); Parainfluenza Virus 4 Not Detected (NOT DETECT); Respiratory Syncytial Virus Not Detected (NOT DETECT); SARS-Cov-2 (COVID-19), BioFire Not Detected (NOT DETECT)
[2023-01-18 19:41] VITALS: BP 128/114
[2023-01-18] MEDS ORDERED: METO25ER PO (20:49)
[2023-01-19 04:06] VITALS: BP 122/60
--- NOTE | 2023-01-19 04:40 | NUR ---
SHIFT SUMMARY PT IS A&O4, 3L NC SATS LOW 90'S, CPAP ORDERED FOR NIGHT USE DUE TO DROPPING SATS PT TOLERATED WELL, UP WITH 1 ASSIST TO BSC, SUPRAPUBIC CATH PATENT AND DRAINING, PRN PAIN MEDICATION GIVEN FOR CHRONIC BACK PAIN PER MAR, IGNITION EDUCATION PROVIDED FOR O2 USES, CONTINUE POC
[2023-01-19 05:02] LABS: BASOPHILS ABSOLUTE AUTO 0.03 K/mm3 (0.00-0.23); BASOPHILS PERCENT AUTO 1 % (0-2); EOSINOPHILS ABSOLUTE AUTO 0.03 K/mm3 (0.00-0.68); EOSINOPHILS PERCENT AUTO 1 % (0-6); Hematocrit 28.9 % (33.0-51.0); Hemoglobin 9.2 g/dL (11.5-16.0); IMMATURE GRAN ABSOLUTE AUTO 0.01 K/mm3 (0.00-0.10); IMMATURE GRAN PERCENT AUTO 0 % (0-1); LYMPHOCYTES ABSOLUTE AUTO 1.19 K/mm3 (0.84-5.20); LYMPHOCYTES PERCENT AUTO 31 % (21-46); MONOCYTES ABSOLUTE AUTO 0.45 K/mm3 (0.16-1.47); MONOCYTES PERCENT AUTO 12 % (4-13); Mean Corpuscular HGB 30.7 pg (26.0-34.0); Mean Corpuscular HGB Conc 31.8 g/dL (31.5-36.5); Mean Corpuscular Volume 96 fL (80-100); Mean Platelet Volume 10.5 fL (9.1-12.4); NEUTROPHILS PERCENT AUTO 55 % (41-73); Platelet Count 201 K/mm3 (150-400); RDW Standard Deviation 52.5 fL (35.1-46.3); White Blood Cell Count 3.81 K/mm3 (4.00-11.30)
[2023-01-19 05:31] LABS: Albumin/Globulin Ratio 0.9 (0.8-1.8); Bilirubin, Total 0.2 mg/dL (0.1-1.0); Bun/Creatinine Ratio 15.9 (12.0-20.0); Calcium, Blood 8.2 mg/dL (8.5-10.1); Creatinine, Blood 0.63 mg/dL (0.40-1.00); Globulin, Blood 3.4 g/dL (2.2-4.0); Potassium, Blood 3.7 mmol/L (3.5-5.5); Total Protein, Blood 6.4 g/dL (6.4-8.2)
[2023-01-19 08:01] VITALS: BP 146/76
[2023-01-19 16:12] VITALS: BP 115/59
--- NOTE | 2023-01-19 18:44 | NUR ---
SHIFT SUMMARY: SEVERE NAUSEA AND PAIN RESOLVED AFTER ZOFRAN GIVEN. ALSO, PT STATED CPAP MAKES HER NAUSEATED AND IS REFUSING TO USE. INDWELLING CATH DRAINING ADEQUATE URINE. ON 2.5 L/MIN O2 NC WITH CONT OXIMETRY, DESATS TO MID 80'S WITH ACTIVITY OR WHILE SLEEPING (MOUTH BREATHER). PAIN ADEQUATELY MANAGED WITH NORCO. WAS UP IN CHAIR FOR LUNCH AND DINNER. IS FEELING MUCH BETTER, IS HOPING TO GO HOME TOMORROW.
[2023-01-19 19:53] VITALS: BP 131/59
[2023-01-20 04:33] VITALS: BP 128/59
[2023-01-20 05:19] LABS: BASOPHILS ABSOLUTE AUTO 0.02 K/mm3 (0.00-0.23); BASOPHILS PERCENT AUTO 1 % (0-2); EOSINOPHILS ABSOLUTE AUTO 0.01 K/mm3 (0.00-0.68); EOSINOPHILS PERCENT AUTO 0 % (0-6); Hematocrit 30.5 % (33.0-51.0); Hemoglobin 9.8 g/dL (11.5-16.0); IMMATURE GRAN ABSOLUTE AUTO 0.01 K/mm3 (0.00-0.10); IMMATURE GRAN PERCENT AUTO 0 % (0-1); LYMPHOCYTES ABSOLUTE AUTO 0.63 K/mm3 (0.84-5.20); LYMPHOCYTES PERCENT AUTO 21 % (21-46); MONOCYTES ABSOLUTE AUTO 0.19 K/mm3 (0.16-1.47); MONOCYTES PERCENT AUTO 6 % (4-13); Mean Corpuscular HGB 30.6 pg (26.0-34.0); Mean Corpuscular HGB Conc 32.1 g/dL (31.5-36.5); Mean Corpuscular Volume 95 fL (80-100); Mean Platelet Volume 10.3 fL (9.1-12.4); NEUTROPHILS ABSOLUTE AUTO 2.22 K/mm3 (1.96-9.15); NEUTROPHILS PERCENT AUTO 72 % (41-73); Platelet Count 203 K/mm3 (150-400); RDW Coefficient Variation 14.8 % (11.7-14.2); RDW Standard Deviation 51.2 fL (35.1-46.3); White Blood Cell Count 3.08 K/mm3 (4.00-11.30)
[2023-01-20 05:40] LABS: Bun/Creatinine Ratio 32.9 (12.0-20.0); Calcium, Blood 7.9 mg/dL (8.5-10.1); Creatinine, Blood 0.52 mg/dL (0.40-1.00); Potassium, Blood 3.9 mmol/L (3.5-5.5)
--- NOTE | 2023-01-20 06:39 | NUR ---
SHIFT SUMMARY PT IS A&O3, FORGETFUL AT TIMES EASILY REORIENTABLE, 1 ASSIST TO BSC, 2L NC, PRN PAIN MEDICATION GIVEN PER MARX2 FOR BACK PAIN, NO ACUTE OVERNIGHT EVENTS, CONTINUE POC
[2023-01-20 07:39] VITALS: BP 149/68
[2023-01-20 16:24] VITALS: BP 117/98
--- NOTE | 2023-01-20 17:23 | NUR ---
SHIFT SUMMARY MS SANCHES IS A&OX4, REQUIRING O2 2LN/C TODAY. RESP THERAPIST AND DR ROTH DISCUSSED MONITORING SLEEP OXYGEN LEVEL TONIGHT WITH A VIEW TO NEEDING HOME OXYGEN THERAPY. BASELINE IS ROOM AIR AT HOME. C/O LEFT FOOT PAIN AND TRACE SWELLING, SEEN BY DR ROTH. PT HAS RECENTLY BEEN [facility]. SUPRA PUBIC URINARY CATHETER IN PPLACE DRAINING TO BELOW BLADDER DRAINAGE BAG. STEADY TRANSFER WITH 1 ASSIST AND GAIT BELT UP TO THE CHAIR. BED LOW, CALL LIGHT IN REACH.
[2023-01-20 19:25] VITALS: BP 133/60
[2023-01-21 05:15] VITALS: BP 149/68
[2023-01-21 06:46] LABS: Bun/Creatinine Ratio 33.6 (12.0-20.0); Calcium, Blood 7.9 mg/dL (8.5-10.1); Creatinine, Blood 0.54 mg/dL (0.40-1.00); Potassium, Blood 3.6 mmol/L (3.5-5.5)
[2023-01-21 07:23] LABS: BASOPHILS ABSOLUTE AUTO 0.06 K/mm3 (0.00-0.23); BASOPHILS PERCENT AUTO 2 % (0-2); EOSINOPHILS ABSOLUTE AUTO 0.12 K/mm3 (0.00-0.68); EOSINOPHILS PERCENT AUTO 3 % (0-6); Hematocrit 32.2 % (33.0-51.0); Hemoglobin 10.3 g/dL (11.5-16.0); IMMATURE GRAN ABSOLUTE AUTO 0.03 K/mm3 (0.00-0.10); IMMATURE GRAN PERCENT AUTO 1 % (0-1); LYMPHOCYTES ABSOLUTE AUTO 1.61 K/mm3 (0.84-5.20); LYMPHOCYTES PERCENT AUTO 39 % (21-46); MONOCYTES ABSOLUTE AUTO 0.44 K/mm3 (0.16-1.47); MONOCYTES PERCENT AUTO 11 % (4-13); Mean Corpuscular HGB 30.8 pg (26.0-34.0); Mean Corpuscular Volume 96 fL (80-100); Mean Platelet Volume 10.1 fL (9.1-12.4); NEUTROPHILS ABSOLUTE AUTO 1.83 K/mm3 (1.96-9.15); NEUTROPHILS PERCENT AUTO 45 % (41-73); Platelet Count 227 K/mm3 (150-400); RDW Coefficient Variation 15.1 % (11.7-14.2); RDW Standard Deviation 52.4 fL (35.1-46.3); Red Blood Cell Count 3.34 M/mm3 (3.80-5.20); White Blood Cell Count 4.09 K/mm3 (4.00-11.30)
[2023-01-21 08:08] VITALS: BP 135/61
[2023-01-21 08:09] VITALS: BP 135/61
[2023-01-21 17:10] VITALS: BP 140/75
[2023-01-21] MEDS ORDERED: Prednisone10 M1 PO (17:12)
[2023-01-21] MEDS ORDERED: FURO20 PO (17:12)
== END 2023-01-21 17:26 | disposition home or self-care (01) | DRG 193 ==
LOC: ER 11:07 → MEDS 17:00
PROVIDERS: Emergency Medicine; ADMIT Internal Medicine
PROC: 5A09357 Assistance with Respiratory Ventilation, Less than 24 Consecutive Hours, Continuous Positive Airway Pressure (ICD-10-PCS; principal; 2023-01-18)
DX: J18.9 Pneumonia, unspecified organism (principal); I50.33 Acute on chronic diastolic (congestive) heart failure; J96.21 Acute and chronic respiratory failure with hypoxia; J44.1 Chronic obstructive pulmonary disease with (acute) exacerbation; J44.0 Chronic obstructive pulmonary disease with (acute) lower respiratory infection; I11.0 Hypertensive heart disease with heart failure; E78.5 Hyperlipidemia, unspecified; Z66 Do not resuscitate; K21.9 Gastro-esophageal reflux disease without esophagitis; M06.9 Rheumatoid arthritis, unspecified; G89.29 Other chronic pain; Z20.822 Contact with and (suspected) exposure to COVID-19; R33.9 Retention of urine, unspecified; F32.A Depression, unspecified; R73.03 Prediabetes; M81.0 Age-related osteoporosis without current pathological fracture; M54.50 Low back pain, unspecified; F41.9 Anxiety disorder, unspecified; Z96.642 Presence of left artificial hip joint; Z88.8 Allergy status to other drugs, medicaments and biological substances; Z88.5 Allergy status to narcotic agent; Z91.048 Other nonmedicinal substance allergy status; Z86.73 Personal history of transient ischemic attack (TIA), and cerebral infarction without residual deficits; Z79.899 Other long term (current) drug therapy; Z79.51 Long term (current) use of inhaled steroids; Z79.2 Long term (current) use of antibiotics; Z79.52 Long term (current) use of systemic steroids; Z79.891 Long term (current) use of opiate analgesic; Z87.440 Personal history of urinary (tract) infections; Z87.19 Personal history of other diseases of the digestive system; Z86.14 Personal history of Methicillin resistant Staphylococcus aureus infection; Z90.49 Acquired absence of other specified parts of digestive tract; Z90.710 Acquired absence of both cervix and uterus; Z98.1 Arthrodesis status; Z98.49 Cataract extraction status, unspecified eye; Z87.891 Personal history of nicotine dependence
CPT/HCPCS: 0202U; 36415; 51705; 71046; 71260; 74177; 80048; 80053; 81001; 83605; 83735; 83880; 84100; 84145; 84484; 85025; 85379; 85610; 85730; 87040; 93005; 93010; 93971; 94640; 94660; 94664; 94761; 94762; 96365-59; 96367-59; 96375-59; 99285-25; A9270; C2627; J0456; J0696; J1650; J1940; J2405; J2765; J2920; J3010; J7050; J7512; Q9967

== ENCOUNTER 2023-05-02 08:34 | Day surgery (SDC) | payer MEDICARE ==
[2023-05-02] VITALS (11 sets, daily range): BP systolic 103–139; BP diastolic 55–126
[~2023-05-02] VITALS: Ht 167.6 cm; Wt 70.0 kg
[~2023-05-02 08:34] MED LIST changes: +DIGOX125 MC1 PO; +DILT60 PO; +DULO30 PO; +ELIQUIS5 M2 PO; +FURO20 PO; +METO100ER PO; +ONDA4 PO; +Prednisone10 M1 PO
[2023-05-02] MEDS ORDERED: BACTRIM DS TAB1 EAC6 PO (10:13)
--- NOTE | 2023-05-02 11:03 | NUR ---
PT TOLERATES CARDIOVERSION WELL. VSS. NADN. SINUS RHTYHM ON MONITOR. PT DAUGHTER, JUAN C VERBALIZES UNDERSTANDING WRITTEN AND VERBAL INSTRUCTIONS. DENIES QUESTIONS OR CONCERNS. PT IV DC'D/ CATH INTACT. PRESSURE DSG IN PLACE. OPT WILL BE DC TO HOME VIA WC BY DAUGHTER
== END 2023-05-03 22:52 | disposition home or self-care (01) ==
LOC: MHTC 08:34
DX: I48.19 Other persistent atrial fibrillation (principal)
CPT/HCPCS: 92960; 93005; 93010; J2704; J7030

== ENCOUNTER → 2023-05-10 | Outpatient (CLI) | payer MEDICARE ==
[~2023-05-10] MED LIST changes: +BACTRIM DS TAB1 EAC6 PO
== END ==
LOC: LAB SHORT 15:59 → LAB 15:59
DX: T83.098A Other mechanical complication of other urinary catheter, initial encounter (principal); R82.79 Other abnormal findings on microbiological examination of urine
CPT/HCPCS: 87077; 87086; 87186

== ENCOUNTER 2023-05-31 08:13 | Emergency (ER) | payer MEDICARE ==
[~2023-05-31] VITALS: Ht 167.6 cm; Wt 70.8 kg
[2023-05-31 08:45] VITALS: BP 127/80
[2023-05-31 09:15] LABS: BASOPHILS ABSOLUTE AUTO 0.05 K/mm3 (0.00-0.23); BASOPHILS PERCENT AUTO 1 % (0-2); EOSINOPHILS ABSOLUTE AUTO 0.24 K/mm3 (0.00-0.68); EOSINOPHILS PERCENT AUTO 4 % (0-6); Hematocrit 38.7 % (33.0-51.0); Hemoglobin 12.2 g/dL (11.5-16.0); IMMATURE GRAN ABSOLUTE AUTO 0.02 K/mm3 (0.00-0.10); IMMATURE GRAN PERCENT AUTO 0 % (0-1); LYMPHOCYTES ABSOLUTE AUTO 0.77 K/mm3 (0.84-5.20); LYMPHOCYTES PERCENT AUTO 14 % (21-46); MONOCYTES ABSOLUTE AUTO 0.34 K/mm3 (0.16-1.47); MONOCYTES PERCENT AUTO 6 % (4-13); Mean Corpuscular HGB 32.3 pg (26.0-34.0); Mean Corpuscular HGB Conc 31.5 g/dL (31.5-36.5); Mean Corpuscular Volume 102 fL (80-100); Mean Platelet Volume 9.3 fL (9.1-12.4); NEUTROPHILS ABSOLUTE AUTO 4.14 K/mm3 (1.96-9.15); NEUTROPHILS PERCENT AUTO 75 % (41-73); Platelet Count 222 K/mm3 (150-400); RDW Coefficient Variation 14.9 % (11.7-14.2); RDW Standard Deviation 56.6 fL (35.1-46.3); Red Blood Cell Count 3.78 M/mm3 (3.80-5.20); White Blood Cell Count 5.56 K/mm3 (4.00-11.30)
[2023-05-31 09:40] LABS: Albumin, Blood 3.6 g/dL (3.4-5.0); Albumin/Globulin Ratio 0.8 (0.8-1.8); Bilirubin, Total 0.3 mg/dL (0.1-1.0); Bun/Creatinine Ratio 20.5 (12.0-20.0); Calcium, Blood 8.9 mg/dL (8.5-10.1); Creatinine, Blood 0.68 mg/dL (0.40-1.00); Globulin, Blood 4.4 g/dL (2.2-4.0); Potassium, Blood 4.2 mmol/L (3.5-5.5)
== END 2023-05-31 10:42 | disposition home or self-care (01) ==
LOC: ER 08:13
PROVIDERS: Physician Assistant
DX: K59.00 Constipation, unspecified (principal); F17.290 Nicotine dependence, other tobacco product, uncomplicated; I10 Essential (primary) hypertension; J44.9 Chronic obstructive pulmonary disease, unspecified; D64.9 Anemia, unspecified; M81.0 Age-related osteoporosis without current pathological fracture; K21.9 Gastro-esophageal reflux disease without esophagitis; M06.9 Rheumatoid arthritis, unspecified; R73.03 Prediabetes; Z87.19 Personal history of other diseases of the digestive system; Z79.01 Long term (current) use of anticoagulants; Z79.899 Other long term (current) drug therapy; Z88.5 Allergy status to narcotic agent; Z88.6 Allergy status to analgesic agent; Z88.8 Allergy status to other drugs, medicaments and biological substances; Z91.09 Other allergy status, other than to drugs and biological substances
CPT/HCPCS: 74177; 80053; 85025; 96361; 96374-59; 96375; 99284-25; J1885; J2405; J3010; J7030; Q9967